=== PATIENT | male | born 1940 | race Caucasian/White ===

== ENCOUNTER → 2016-08-16 | Outpatient (CLI) | payer MEDICARE, OTHER ==
[~2016-08-16] MED LIST: ALLO100T; AMLO5TAB2 PO; ATOR80TA64; CALC667C3 PO; FENO134C PO; LOSA1TAB70 PO; METO-352 PO; METO100T6 PO; NIFE90TA33 PO
--- NOTE | 2016-08-16 12:55 | Diagnostic Imaging Report ---
PA and lateral views of the chest. COMPARISON: 04/28/2016. INDICATION: Cough and congestion. FINDINGS: There is interval removal of right internal jugular tunneled dialysis catheter. There is interstitial thickening in the lungs similar to 04/28/2016 exam. No older exams are available to assess for chronicity and element of vascular congestion and mild interstitial edema is suspected. The heart size is at the upper limits of normal. No effusion or pneumothorax. The mediastinum and jessica appear unremarkable. IMPRESSION: Pulmonary vascular congestion. Dictated by: Dictated on workstation # [id number]
== END ==
LOC: RAD 11:03
PROVIDERS: ATTEND Internal Medicine Nephrology
DX: I50.9 Heart failure, unspecified (principal)
CPT/HCPCS: 71020

== ENCOUNTER → 2017-07-17 | Outpatient (CLI) | payer MEDICARE, OTHER ==
[~2017-07-17] MED LIST changes: +LOSA1TAB23 PO; -LOSA1TAB70 PO
--- NOTE | 2017-07-17 17:33 | Diagnostic Imaging Report ---
Clinical indication: Patient with difficulty talking times couple months. Patient losing voice. No complaints of pain anywhere. No nodule felt anywhere. Exams: 1: MRI of the neck performed without contrast. Sequences include axial T1, axial T2, axial T1 fat-sat, coronal T1, coronal T2 fat-sat. 2: MRI of the chest performed without IV contrast. Sequences include axial 2-D fiesta, axial T2 fat-sat, axial T2, coronal 2-D fiesta, coronal 2-D fiesta fat sat, sagittal 2-D fiesta, coronal lava sequence, axial lava sequence, coronal in and out phase, and axial in and out of phase. Comparison: Bilateral renal ultrasound dated 10/08/2012. Findings: MRI of the neck: There is asymmetry of the supraglottic and glottic laryngeal region which appears rotated slightly counter-clockwise in appearance. The supra-glottic laryngeal soft tissue has a slight lobulated appearance. There is a roughly 10 mm by 8mm area of isointense to muscle T1 signal within the left supraglottic fat noted on series 2, images 16 through 18. Is also a small medial convex border seen extending into the airway area. Besides a slightly distorted and asymmetric appearance, the glottic area shows no significant abnormality. The remainder of the paraglottic and preepiglottic fat appears preserved unremarkable. The nasopharynx, oropharynx, hypopharynx, and subglottic trachea show no significant abnormality. Visualized portions of the oral cavity, tongue, sublingual space, submandibular space is unremarkable. The bilateral salivary glands and thyroid gland is unremarkable. There is no significant lymphadenopathy. Limited visualization of the posterior fossa shows no significant interbody. Visualized bilateral maxillary sinuses are clear. There are cervical spine degenerative disease including right curvature of the cervical spine. Is no neck soft tissue fluid collection seen. MRI of the chest: There is no evidence of mediastinal or upper mediastinal mass seen. There is no mediastinal mass seen along the expected pathway of the recurrent laryngeal nerves. There is no mediastinal lymphadenopathy. Visualized portion the heart is no significant and mildly. There is diffuse low signal involving the spleen on the in phase sequence. Exophytic small bilateral renal cystic structures are partially visualized. Patient is known to have bilateral renal cysts on the comparison ultrasound. The visualized portion of the upper abdominal organs in the region is unremarkable. Is no thoracic aortic aneurysm or gross evidence of dissection seen on the limited exam. Lung azul show no gross and mildly. There is no pleural effusion. The extrathoracic soft tissue and bone structures show no acute process. There is thoracic spine degenerative spurs noted. There is hypertrophic spurring of the glenohumeral joints bilaterally. Visualized portion of the thoracic spinal cord is unremarkable. Impression: 1: There is mild asymmetry of the supraglottic and glottic laryngeal region. There is a roughly 10 mm area of isointense to muscle T1 signal involving the left supraglottic laryngeal fat region. There is a medial convex border of this area which slightly extends to the airway region. Considerations may include a submucosal left supraglottic soft tissue mass versus scar tissue versus other abnormality. Direct visualization may help better evaluate. 2: Otherwise, There is no other significant neck soft tissue abnormality. There is no lymphadenopathy or other neck soft tissue mass. 3: MRI of the chest shows no upper mediastinal mass or lymphadenopathy. 4: Diffuse low signal involving the spleen on the in-phase sequence which may be seen with iron deposition or repeated blood transfusions. Dictated by: Dictated on workstation # [id number]
== END ==
LOC: RAD 15:37
PROVIDERS: ATTEND Otolaryngology Otolaryngology/Facial Plastic Surgery
DX: J38.01 Paralysis of vocal cords and larynx, unilateral (principal)
CPT/HCPCS: 70540; 71550

== ENCOUNTER → 2018-02-14 | Outpatient (CLI) | payer MEDICARE, OTHER ==
[~2018-02-14] MED LIST changes: +RT-ALBUTEROL SULF 2.5 MG/3 ML PRE-MIX VIAL INH ONE; +RT-ALBUTEROL SULF 2.5 MG/3 ML PRE-MIX VIAL ONE; +SEVE800T13 PO
== END ==
LOC: RT 13:06
PROVIDERS: ATTEND Family Medicine
DX: J44.9 Chronic obstructive pulmonary disease, unspecified (principal)
CPT/HCPCS: 94060; 94726; 94729

== ENCOUNTER → 2018-02-27 | Outpatient (CLI) | payer MEDICARE, OTHER ==
[~2018-02-27] MED LIST changes: -RT-ALBUTEROL SULF 2.5 MG/3 ML PRE-MIX VIAL INH ONE; -RT-ALBUTEROL SULF 2.5 MG/3 ML PRE-MIX VIAL ONE
[2018-02-27 15:14] LABS: ABG BASE EXCESS 10.5 MMOL/L (-2.5-2.5); ABG OXYGEN SATURATION 99 % (94-100); ABG PCO2 43 MMHG (35-45); ABG PH 7.51 (7.37-7.43); ABG PO2 96 MMHG (79-93); ABG TCO2 35.6 MMOL/L (21.0-31.0)
[2018-02-27 15:15] LABS: ALLENS TEST YES-POS; INSPIRED O2 3 L; PATIENT TEMP 98.1; VENTILATOR NO
== END ==
LOC: RT 14:46
PROVIDERS: ATTEND Nurse Practitioner Family
DX: J44.9 Chronic obstructive pulmonary disease, unspecified (principal)
CPT/HCPCS: 36600; 82805

== ENCOUNTER → 2018-03-04 | Outpatient (CLI) | payer MEDICARE, OTHER | LOC: CARD 12:46 | PROVIDERS: ATTEND Nurse Practitioner Family | DX: I42.9 Cardiomyopathy, unspecified (principal); J44.9 Chronic obstructive pulmonary disease, unspecified; R06.00 Dyspnea, unspecified; N18.4 Chronic kidney disease, stage 4 (severe) | CPT/HCPCS: 93306 ==

== ENCOUNTER 2018-03-18 13:30 | Outpatient (RCR) | payer MEDICARE, OTHER ==
[~2018-03-18 13:30] MED LIST changes: -AMLO5TAB2 PO; +AMLO5TAB7 PO
== END 2018-04-24 15:41 | disposition home or self-care (01) ==
PROVIDERS: ATTEND Family Medicine
DX: R53.1 Weakness (principal); R29.6 Repeated falls; R26.81 Unsteadiness on feet; J44.9 Chronic obstructive pulmonary disease, unspecified; I48.91 Unspecified atrial fibrillation; I10 Essential (primary) hypertension; Z96.651 Presence of right artificial knee joint

== ENCOUNTER 2019-01-23 17:35 | Emergency (ER) | payer MEDICARE, OTHER ==
[~2019-01-23] VITALS: Ht 170.2 cm; Wt 83.9 kg
[~2019-01-23 17:35] MED LIST changes: -AMLO5TAB7 PO; +AMLO5TAB9 PO
[2019-01-23] MEDS ORDERED: LIDOCAINE/EPI 2% 1:100,00 (XYLOCAINE) 20 ML VIAL ONE (17:40)
--- NOTE | 2019-01-23 17:59 | ED Integumentary General ---
General Chief Complaint: Skin/Wound Problems Stated Complaint: FROM DIALYSIS/CONTINUED BLEEDING Nursing Triage Note: PT LEFT ARM DIALYSIS FISTULA WILL NOT STOP BLEEDING. PT HAD DIALYSIS ENDING AT 1545 TODAY. HEPARIN WAS HELD AT DIALYSIS. PT ON XARELTO AND BABY ASA. PT ALSO HAS BUSTED VESSELS IN RIGHT EYE NOTED. PRESSURE DRESSING NOTED UPON ARRIVAL. Source: patient, family Exam Limitations: no limitations (LINDSEY TAVAREZ APRN) History of Present Illness Date Seen by Provider: Jan 23, 2019 Time Seen by Provider: 17:56 Initial Comments To ER by private vehicle with reports of bleeding to the left upper arm arteriovenous fistula. He has been bleeding since dialysis and arrives with a direct pressure clamp in place. He is on Xarelto, Timing/Duration: just prior to arrival Severity: moderate Associated Symptoms: denies symptoms (LINDSEY TAVAREZ APRN) Allergies and Home Medications Allergies Coded Allergies: No Known Drug Allergies (Unverified , 04/27/16) Home Medications Fenofibrate,Micronized 134 Mg Capsule, 134 MG PO DAILY, (Reported) Metoprolol Succinate 100 Mg Tab.er.24h, 100 MG PO DAILY, (Reported) Sevelamer Carbonate 800 Mg Tablet, 800 MG PO DAILY Prescribed by: BLAKE SHAH on 12/29/17 0368 Patient Home Medication List Home Medication List Reviewed: Yes (LINDSEY TAVAREZ APRN) Review of Systems Review of Systems Constitutional: see HPI EENTM: see HPI Respiratory: no symptoms reported Cardiovascular: no symptoms reported Genitourinary: no symptoms reported Musculoskeletal: no symptoms reported Skin: no symptoms reported Psychiatric/Neurological: No Symptoms Reported (LINDSEY TAVAREZ APRN) Past Rzoeooe-Xoqper-Zadtcx Hx Patient Social History Alcohol Use: Denies Use Recreational Drug Use: No Type Used: Cigarettes 2nd Hand Smoke Exposure: No Recent Foreign Travel: No Contact w/Someone Who Travel: No Recent Infectious Disease Expo: No Recent Hopitalizations: Yes Physical Abuse: No Sexual Abuse: No Mistreated: No Fear: No (LINDSEY TAVAREZ APRN) Immunizations Up To Date Tetanus Booster (TDap): Unknown PED Vaccines UTD: No Date of Pneumonia Vaccine: Apr 12, 2015 Date of Influenza Vaccine: Apr 12, 2015 (LINDSEY TAVAREZ APRN) Seasonal Allergies Seasonal Allergies: No (LINDSEY TAVAREZ APRN) Past Medical History Surgeries: Yes (COLOSTOMY WITH REVERSED) Abdominal, Appendectomy, Orthopedic Respiratory: No Cardiac: Yes High Cholesterol, Hypertension Neurological: No Reproductive Disorders: No Genitourinary: Yes Benign Prostatic Hyperpl, Kidney Stones, Renal Failure, Dialysis Gastrointestinal: Yes Gastroesophageal Reflux, Diverticulosis Musculoskeletal: Yes Gout Endocrine: No Cataract Loss of Vision: Denies Hearing Impairment: Denies Cancer: Yes Skin Psychosocial: No Integumentary: No Blood Disorders: No Adverse Reaction/Blood Tranf: No (LINDSEY TAVAREZ APRN) Family Medical History Alzheimer's disease FHx: breast cancer in first degree relative G8 SISTER No Pertinent Family Hx (LINDSEY TAVAREZ APRN) Physical Exam Vital Signs Vital Signs - First Documented 01/23/19 17:43 Temp 97.6 Pulse 59 Resp 18 B/P (MAP) 159/72 (101) O2 Delivery Room Air (XAVIER FIORE) Vital Signs Capillary Refill : Less Than 3 Seconds (LINDSEY TAVAREZ APRN) General Appearance: WD/WN, no apparent distress HEENT: PERRL/EOMI, normal ENT inspection Respiratory: no respiratory distress, no accessory muscle use Extremities: normal range of motion, non-tender, other (there is no bleeding within the direct pressure clamp was applied, there is pulsatile streaming of blood from the arteriovenous fistula when this is removed.) Neurologic/Psychiatric: alert, normal mood/affect, oriented x 3 (LINDSEY TAVAREZ APRN) Procedures/Interventions Wound Location: Upper Extremities Wound Length (cm): 0.5 Wound's Depth, Shape: linear Anesthesia: Lidocaine w/ Epi Suture: Prolene Suture Size: 4-0 Number of Sutures: 1 Layer Closure?: 1 Progress Locally anesthetized with 2% lidocaine with epinephrine by Dr. Fiore. A kdqnst-jo-hbpcq stitch was then placed using 4-0 Prolene after returning was applied just proximal the arteriovenous fistula. Bleeding was controlled with this and is sutured easily be placed. When the tourniquet was removed after about 1 minute, there was still no bleeding. This was then covered with 4 x 4's and Coban. (LINDSEY TAVAREZ APRN) Wound Location: Upper Extremities Progress Using a proximal and distal tourniquet we controlled the bleeding and applied a simple ffcmkk-bz-kyrkf stitch 1 using 4-0 Prolene. We watched it for about 5 minutes and it did not bleed so we placed some gauze over it and wrapped it gently with Coban. No bleeding noted in the dressing. (XAVIER FIORE) Progress/Results/Core Measures Results/Orders My Orders Orders - XAVIER FIORE Lidocaine/Epi 2% 1:100,000 (Xylocaine/Ep (01/23/19 17:40) (XAVIER FIORE) Vital Signs/I&O 01/23/19 17:43 Temp 97.6 Pulse 59 Resp 18 B/P (MAP) 159/72 (101) O2 Delivery Room Air (XAVIER FIORE) Blood Pressure Mean: 101 Departure Impression Primary Impression: Hemorrhage of arteriovenous fistula Qualified Codes: T82.838A - Hemorrhage due to vascular prosthetic devices, implants and grafts, initial encounter Disposition: 01 HOME, SELF-CARE Condition: Improved Departure-Patient Inst. Decision time for Depature: 17:58 (LINDSEY TAVAREZ APRN) Referrals: ALANA BUTT DO (PCP/Family) Primary Care Physician Patient Instructions: Wound Care (DC) Add. Discharge Instructions: 1. The stitches should be removed in about 7 days. The dialysis nurses can do this by simply cutting it. Leave the dressing in place until sometime tomorrow. Be very gentle with it, return promptly to the emergency room for any recurrent bleeding. All discharge instructions reviewed with patient and/or family. Voiced understanding. LINDSEY TAVAREZ APRN Jan 23, 2019 17:59 XAVIER FIORE Jan 23, 2019 18:04
[2019-01-23] MEDS ORDERED: LIDOCAINE/EPI 2% 1:100,00 (XYLOCAINE) 20 ML VIAL INJ ONE (18:15)
[2019-01-23 18:21] VITALS: BP 170/85
== END 2019-01-23 18:19 | disposition home or self-care (01) ==
LOC: EDUNIT# 17:35 → ER 17:36
DX: T82.838A Hemorrhage due to vascular prosthetic devices, implants and grafts, initial encounter (principal); E78.00 Pure hypercholesterolemia, unspecified; I12.0 Hypertensive chronic kidney disease with stage 5 chronic kidney disease or end stage renal disease; N18.6 End stage renal disease; K21.9 Gastro-esophageal reflux disease without esophagitis; M10.9 Gout, unspecified; Z80.3 Family history of malignant neoplasm of breast; Z87.19 Personal history of other diseases of the digestive system; Z99.2 Dependence on renal dialysis; Z79.01 Long term (current) use of anticoagulants; Z87.442 Personal history of urinary calculi; Z90.49 Acquired absence of other specified parts of digestive tract; Z98.890 Other specified postprocedural states
CPT/HCPCS: 12001

== ENCOUNTER 2019-04-24 17:20 | Emergency (ER) | payer MEDICARE, OTHER ==
[~2019-04-24] VITALS: Ht 170 cm; Wt 84.0 kg
[~2019-04-24 17:20] MED LIST changes: +LIDOCAINE/EPI 2% 1:100,00 (XYLOCAINE) 20 ML VIAL ONE
--- NOTE | 2019-04-24 17:40 | ED General ---
General Chief Complaint: General Problems/Pain Stated Complaint: PROBLEM WITH BLEEDING FROM DIALYSIS ON ARM Source of Information: Patient Exam Limitations: No Limitations History of Present Illness Date Seen by Provider: Apr 24, 2019 Time Seen by Provider: 17:37 Initial Comments To ER with reports of bleeding from the dialysis fistula on the left arm. He just finished dialysis today in the puncture site with bleeding. He's also on xarelto Timing/Duration: 1-2 Days Severity: Moderate Associated Systoms: Denies Symptoms Allergies and Home Medications Allergies Coded Allergies: No Known Drug Allergies (Unverified , 04/27/16) Home Medications Fenofibrate,Micronized 134 Mg Capsule, 134 MG PO DAILY, (Reported) Metoprolol Succinate 100 Mg Tab.er.24h, 100 MG PO DAILY, (Reported) Sevelamer Carbonate 800 Mg Tablet, 800 MG PO DAILY Prescribed by: BLAKE SHAH on 12/29/17 1349 Patient Home Medication List Home Medication List Reviewed: Yes Review of Systems Review of Systems Constitutional: see HPI EENTM: see HPI Respiratory: no symptoms reported Cardiovascular: no symptoms reported Genitourinary: no symptoms reported Musculoskeletal: see HPI Skin: no symptoms reported Psychiatric/Neurological: No Symptoms Reported Hematologic/Lymphatic: No Symptoms Reported Immunological/Allergic: no symptoms reported Past Uqbohyf-Eilfnf-Idykzd Hx Patient Social History Type Used: Cigarettes 2nd Hand Smoke Exposure: No Recent Foreign Travel: No Contact w/Someone Who Travel: No Recent Hopitalizations: Yes Immunizations Up To Date Tetanus Booster (TDap): Unknown PED Vaccines UTD: No Date of Pneumonia Vaccine: Apr 12, 2015 Date of Influenza Vaccine: Apr 12, 2015 Seasonal Allergies Seasonal Allergies: No Past Medical History Surgeries: Yes (COLOSTOMY WITH REVERSED) Abdominal, Appendectomy, Orthopedic Respiratory: No Cardiac: Yes High Cholesterol, Hypertension Neurological: No Reproductive Disorders: No Genitourinary: Yes Benign Prostatic Hyperpl, Kidney Stones, Renal Failure, Dialysis Gastrointestinal: Yes Gastroesophageal Reflux, Diverticulosis Musculoskeletal: Yes Gout Endocrine: No Cataract Loss of Vision: Denies Hearing Impairment: Denies Cancer: Yes Skin Psychosocial: No Integumentary: No Blood Disorders: No Adverse Reaction/Blood Tranf: No Family Medical History Alzheimer's disease FHx: breast cancer in first degree relative G8 SISTER No Pertinent Family Hx Physical Exam Vital Signs Vital Signs - First Documented 04/24/19 17:26 Temp 37.1 Pulse 77 Resp 19 B/P (MAP) 149/82 (104) Pulse Ox 95 O2 Delivery Room Air Capillary Refill : Height, Weight, BMI Height: 5'7.00" Weight: 185lbs. 8.0oz. [id number]; 28.8 BMI Method:Stated General Appearance: No Apparent Distress, WD/WN Eyes: Bilateral Eye Normal Inspection Respiratory: No Accessory Muscle Use, No Respiratory Distress Gastrointestinal: Non Tender, Soft Extremity: Normal Capillary Refill, Normal Inspection, Other (Active bleeding despite a clamp in place to the fistula on the left upper arm. This is just who's with the clamp in place. The clamp was left in place, trauma tourniquet was applied, cinched down tight, the clamp from the dialysis facility was removed, a ntpafk-zj-dvpmq stitch was placed after anesthetizing the tissues with 1 mL of 0.1% lidocaine with epinephrine. Fqquuo-tl-mylwj stitch was placed using size 4-0 Prolene. This did achieve hemostasis. The tourniquet was then loosened.) Neurologic/Psychiatric: Alert, Oriented x3 Skin: Normal Color, Warm/Dry Procedures/Interventions Suture Size: 4-0 Progress/Results/Core Measures Suspected Sepsis SIRS Temperature: Pulse: Respiratory Rate: Blood Pressure / Mean: Results/Orders Vital Signs/I&O 04/24/19 17:26 Temp 37.1 Pulse 77 Resp 19 B/P (MAP) 149/82 (104) Pulse Ox 95 O2 Delivery Room Air Capillary Refill : Departure Communication (Admissions) 1750-currently 10-15 minutes after the sutures have been placed there is no oozing of blood through the few 2 x 2 is placed over the puncture site. Having achieved hemostasis we will discharge to home. Impression Primary Impression: bleeding hemodialysis fistula Disposition: HOME, SELF-CARE Condition: Stable Departure-Patient Inst. Decision time for Depature: 17:39 Referrals: ALANA BUTT DO (PCP/Family) Primary Care Physician Patient Instructions: NO INSTRUCTIONS GIVEN Add. Discharge Instructions: 1. Return to ER for any concerns 2. Follow-up with your doctor next week 3. Stitches in place for abou 7 days, then may then be removed. All discharge instructions reviewed with patient and/or family. Voiced understanding. LINDSEY TAVAREZ TRAVEL REGISTERED NURSE ONCOLOGY Apr 24, 2019 17:39
[2019-04-24 17:53] VITALS: BP 138/77
== END 2019-04-24 17:53 | disposition home or self-care (01) ==
LOC: EDUNIT# 17:20 → ER 17:24
DX: T82.838A Hemorrhage due to vascular prosthetic devices, implants and grafts, initial encounter (principal); I10 Essential (primary) hypertension; E78.00 Pure hypercholesterolemia, unspecified; K21.9 Gastro-esophageal reflux disease without esophagitis; M10.9 Gout, unspecified; Z85.828 Personal history of other malignant neoplasm of skin; Z87.442 Personal history of urinary calculi; Z99.2 Dependence on renal dialysis; Z79.01 Long term (current) use of anticoagulants; Z90.49 Acquired absence of other specified parts of digestive tract; Z87.19 Personal history of other diseases of the digestive system; Z87.448 Personal history of other diseases of urinary system
CPT/HCPCS: 99281

== ENCOUNTER 2019-06-03 16:52 | Emergency (ER) | payer MEDICARE, OTHER ==
[~2019-06-03] VITALS: Ht 170 cm; Wt 84.0 kg
[~2019-06-03 16:52] MED LIST changes: -LIDOCAINE/EPI 2% 1:100,00 (XYLOCAINE) 20 ML VIAL ONE
[2019-06-03] MEDS ORDERED: LIDOCAINE/EPI 2% 1:100,00 (XYLOCAINE) 20 ML VIAL ONE (17:40)
--- NOTE | 2019-06-03 18:26 | ED Upper Extremity ---
General Chief Complaint: General Problems/Pain Stated Complaint: FISTULA BLEEDING Nursing Triage Note: PT TO ROOM 4 PT CO OF L ARM DIALYSIS SHUNT WONT STOP BLEEDING, PT HAS DIALYSIS CLAMP IN PLACE. PT IS ALERT AND WEARS O2 AT 3L PER N/C. PT STATES COULD NOT GET TO STOP BLEEDING AT DIALYSIS Nursing Sepsis Screen: No Definite Risk Source: patient Exam Limitations: no limitations History of Present Illness Date Seen by Provider: Jun 03, 2019 Time Seen by Provider: 18:22 Initial Comments To ER with c/o bleeding from hemodialysis fistula site left upper arm post dialysis just prior to arrival. On xarelto for a-fib. Onset: just prior to arrival Severity: mild Pain/Injury Location: left arm Allergies and Home Medications Allergies Coded Allergies: No Known Drug Allergies (Unverified , 04/27/16) Home Medications Fenofibrate,Micronized 134 Mg Capsule, 134 MG PO DAILY, (Reported) Metoprolol Succinate 100 Mg Tab.er.24h, 100 MG PO DAILY, (Reported) Sevelamer Carbonate 800 Mg Tablet, 800 MG PO DAILY Prescribed by: BLAKE SHAH on 12/29/17 5104 Patient Home Medication List Home Medication List Reviewed: Yes Review of Systems Constitutional: see HPI EENTM: see HPI Respiratory: no symptoms reported Cardiovascular: no symptoms reported Genitourinary: no symptoms reported Musculoskeletal: see HPI Skin: no symptoms reported Psychiatric/Neurological: No Symptoms Reported Past Uftcycj-Psdlxz-Bgmtnr Hx Patient Social History Alcohol Use: Denies Use Recreational Drug Use: No Smoking Status: Never a Smoker Type Used: Cigarettes 2nd Hand Smoke Exposure: No Recent Foreign Travel: No Contact w/Someone Who Travel: No Recent Infectious Disease Expo: No Recent Hopitalizations: No Physical Abuse: No Sexual Abuse: No Immunizations Up To Date Tetanus Booster (TDap): Unknown PED Vaccines UTD: No Date of Pneumonia Vaccine: Apr 12, 2015 Date of Influenza Vaccine: Apr 12, 2015 Seasonal Allergies Seasonal Allergies: No Past Medical History Surgeries: Yes (FISTULA L ARM) Abdominal, Appendectomy, Orthopedic Respiratory: No Cardiac: Yes High Cholesterol, Hypertension Neurological: No Reproductive Disorders: No Genitourinary: Yes Benign Prostatic Hyperpl, Kidney Stones, Renal Failure, Dialysis Gastrointestinal: Yes Gastroesophageal Reflux, Diverticulosis Musculoskeletal: Yes Gout Endocrine: No Cataract Loss of Vision: Denies Hearing Impairment: Denies Cancer: Yes Skin Psychosocial: No Integumentary: No Blood Disorders: No Adverse Reaction/Blood Tranf: No Family Medical History Alzheimer's disease FHx: breast cancer in first degree relative G8 SISTER No Pertinent Family Hx Physical Exam Vital Signs Vital Signs - First Documented 06/03/19 16:55 Temp 36.3 Pulse 79 Resp 18 B/P (MAP) 154/74 (100) Pulse Ox 92 O2 Delivery Nasal Cannula O2 Flow Rate 3.00 Capillary Refill : Less Than 3 Seconds Height, Weight, BMI Height: 5'7.00" Weight: 185lbs. 8.0oz. 83.615574tv; 29.00 BMI Method:Stated General Appearance: WD/WN, no apparent distress HEENT: PERRL/EOMI, normal ENT inspection Respiratory: no respiratory distress, no accessory muscle use Shoulder: normal inspection, non-tender Elbow/Forearm: normal inspection, Left Neurologic/Psychiatric: alert, normal mood/affect, oriented x 3 small but steady stream of bleeding from puncture site anterior left upper arm after dialysis clamp removed. Trauma tourniquet applied proximal to this, overlying skin anesthetized with lidociane with epinephrine [id number] totaling 0.5ml. Figure of 8 suture placed using 4-0 prolene. Some small bleeding/oozing from the suture needle puncture site but the stream of blood resolved. This ooze was then dried and dermabond applied. Hemostasis achieved, observed x30 minutes without recurrent bleeding. Pt only lives 1 mile from hospital, will return to ER for any concerns. Procedures/Interventions Suture Size: 4-0 Progress/Results/Core Measures Results/Orders Medications Given in ED Current Medications Medications Dose Ordered Sig/Polina Route Start Time Stop Time Status Last Admin Dose Admin Lidocaine/ Epinephrine 20 ml STK-MED ONCE .ROUTE 06/03/19 17:40 06/03/19 17:42 DC 06/03/19 17:50 2 ML Vital Signs/I&O 06/03/19 16:55 Temp 36.3 Pulse 79 Resp 18 B/P (MAP) 154/74 (100) Pulse Ox 92 O2 Delivery Nasal Cannula O2 Flow Rate 3.00 Blood Pressure Mean: 100 Departure Impression Primary Impression: Hemodialysis fistula bleed Disposition: 01 HOME, SELF-CARE Condition: Stable Departure-Patient Inst. Decision time for Depature: 18:26 Referrals: ALANA BUTT DO (PCP/Family) Primary Care Physician Patient Instructions: NO INSTRUCTIONS GIVEN Add. Discharge Instructions: 1. Return to ER for any concerns or rebleeding. All discharge instructions reviewed with patient and/or family. Voiced understanding. LINDSEY TAVAREZ UNIX ANALYST Jun 03, 2019 18:26
--- NOTE | 2019-06-03 18:30 | NUR ---
NO BLEEDING NOTED ON L UPPER ARM FISTULA AREA
[2019-06-03 18:31] VITALS: BP 154/74
== END 2019-06-03 18:31 | disposition home or self-care (01) ==
LOC: EDUNIT# 16:52 → ER 16:53
DX: T82.838A Hemorrhage due to vascular prosthetic devices, implants and grafts, initial encounter (principal); I48.91 Unspecified atrial fibrillation; I10 Essential (primary) hypertension; E78.00 Pure hypercholesterolemia, unspecified; K21.9 Gastro-esophageal reflux disease without esophagitis; M10.9 Gout, unspecified; Z85.828 Personal history of other malignant neoplasm of skin; Z87.442 Personal history of urinary calculi; Z79.01 Long term (current) use of anticoagulants; Z90.49 Acquired absence of other specified parts of digestive tract; Z99.2 Dependence on renal dialysis; Z80.3 Family history of malignant neoplasm of breast
CPT/HCPCS: 99281

== ENCOUNTER 2019-10-22 18:04 | Emergency (ER) | payer MEDICARE, OTHER ==
[~2019-10-22] VITALS: Ht 170 cm; Wt 83.9 kg
[~2019-10-22 18:04] MED LIST changes: -NIFE90TA33 PO; +NIFE90TA57 PO
--- NOTE | 2019-10-22 18:24 | ED Fall/Injury ---
General Chief Complaint: Hip/Pelvic Problems Stated Complaint: WEAKNESS, HIP PAIN Nursing Triage Note: ARRIVED VIA [facility] FROM HOME AFTER FALLING MULTIPLE TIMES. STATES HE IS HAVING INCREASED WEAKNESS. UNKNOWN IF HE HAS HIT HIS HEAD. Source: patient (SOMEWHAT LIMITED HISTORIAN), family (DAUGHTER), EMS History of Present Illness Date Seen by Provider: Oct 22, 2019 Time Seen by Provider: 17:57 Initial Comments PT ARRIVES VIA EMS FROM HOME AT [facility] PT HAD A WITNESSED FALL FROM STANDING, ONTO CARPET, LANDING ON HIS LEFT SIDE--OCCURRED JUST PRIOR TO ARRIVAL DAUGHTER WITNESSED THE FALL PT HAS ONGOING GENERALIZED WEAKNESS, AND WAS USING HIS WALKER, AND WAS "JUST WEAK" AND HE FELL--MORE WEAK TODAY NO LOSS OF CONSCIOUSNESS DOES NOT THINK HE HIT HIS HEAD NO NECK OR BACK PAIN ONLY C/O LEFT HIP PAIN NO PARESTHESIAS OR MOTOR DEFICITS PT FELL LAST WEEK, UNDER SAME CIRCUMSTANCES, AND HIT LEFT UPPER ARM--DID NOT SEEK CARE STATES ARM DOES NOT HURT PT HAS A BRUISE TO THIS AREA, AND ALSO A SMALL BRUISE TO RIGHT BREAST AREA--STATES IT DOES NOT HURT NO SHORTNESS OF BREATH NO CHEST PAIN NO PALPITATIONS NO FEVER OR RECENT ILLNESS NO VISION CHANGES NO HEADACHE NO NAUSEA/VOMITING NO COUGH/CONGESTION 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 PT STATES HE IS NOT DIABETIC, BUT IS NOT SURE WHY HE HAS KIDNEY FAILURE--? POSSIBLY DUE TO HTN ?? 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 PT HAS HAD PRIOR RIGHT KNEE REPLACEMENT AND STATES HIS LEFT LEG IS NOW SHORTER THAN RIGHT ( "WAS BOW-LEGGED", AND AFTER KNEE REPLACEMENT, HIS RIGHT LEG IS NOW STRAIGHT, THEREFORE IS LONGER THAN THE LEFT) PCP: DR. BUTT CHAIN PEGGER: DR Diaz" --DIALYSIS AT [facility] Allergies and Home Medications Allergies Coded Allergies: No Known Drug Allergies (Unverified , 04/27/16) Home Medications Fenofibrate,Micronized 134 Mg Capsule, 134 MG PO DAILY, (Reported) Metoprolol Succinate 100 Mg Tab.er.24h, 100 MG PO DAILY, (Reported) Sevelamer Carbonate 800 Mg Tablet, 800 MG PO DAILY Prescribed by: BLAKE SHAH on 12/29/17 3313 Patient Home Medication List Home Medication List Reviewed: Yes Review of Systems Review of Systems Constitutional: see HPI; No chills, No diaphoresis, No dizziness, No fever; malaise, weakness Eyes: No Symptoms Reported Ears, Nose, Mouth, Throat: no symptoms reported Respiratory: no symptoms reported Cardiovascular: no symptoms reported Gastrointestinal: no symptoms reported Genitourinary: see HPI Musculoskeletal: see HPI Skin: see HPI Psychiatric/Neurological: No Symptoms Reported; Denies Headache, Denies Numbness, Denies Paresthesia, Denies Seizure, Denies Tingling Past Yegmfkh-Eldrgv-Kpqtkr Hx Past Med/Social Hx: Reviewed and Corrections made Patient Social History Alcohol Use: Denies Use Recreational Drug Use: No Smoking Status: Former Smoker (SMOKED 1 PPD, QUIT IN ) Type Used: Cigarettes 2nd Hand Smoke Exposure: No Recent Foreign Travel: No Contact w/Someone Who Travel: No Recent Infectious Disease Expo: No Recent Hopitalizations: No Immunizations Up To Date Tetanus Booster (TDap): Unknown PED Vaccines UTD: No Date of Pneumonia Vaccine: Apr 12, 2015 Date of Influenza Vaccine: Apr 12, 2015 Seasonal Allergies Seasonal Allergies: No Past Medical History Surgeries: Yes (SEE BELOW) Abdominal, Appendectomy, Cardiac, Dialysis, Orthopedic, Valve Replacement, Vascular Surgery Respiratory: No Cardiac: Yes (PACEMAKER; VALVE REPLACEMENT) Chronic Edema/Swelling, High Cholesterol, Hypertension, Irregular Heartbeat, Valvular Heart Disease Neurological: No Reproductive Disorders: No Genitourinary: Yes Benign Prostatic Hyperpl, Kidney Stones, Renal Failure, Dialysis Gastrointestinal: Yes (S/P COLON RESECTION/COLOSTOMY/LATER TAKEDOWN) Gastroesophageal Reflux, Diverticulosis Musculoskeletal: Yes (RIGHT KNEE REPLACEMENT) Arthritis, Gout Endocrine: No HEENT: Yes Cataract Loss of Vision: Denies Hearing Impairment: Denies Cancer: Yes Skin Did You Recieve Any Treatments: Yes What Type of Treatment Did You: Surgical Intervention Psychosocial: No Integumentary: No Blood Disorders: No Adverse Reaction/Blood Tranf: No Family Medical History Alzheimer's disease FHx: breast cancer in first degree relative G8 SISTER No Pertinent Family Hx PSH: -EGD'S/COLONOSCOPIES -CATARACT SURGERY -REMOVAL OF SKIN CANCER -APPENDECTOMY -LEFT ARM DIALYSIS SHUNT/GRAFT/AV FISTULA -RIGHT KNEE REPLACEMENT -COLON RESECTION WITH DIVERTING COLOSTOMY FOR DIVERTICULITIS, WITH LATER TAKEDOWN/REVERSAL -VALVE REPLACEMENT -PACEMAKER Physical Exam Vital Signs Vital Signs - First Documented 10/22/19 18:04 Temp 36.6 Pulse 75 Resp 16 B/P (MAP) 161/86 (111) Pulse Ox 98 O2 Delivery Room Air O2 Flow Rate 4.00 Capillary Refill : Less Than 3 Seconds Height, Weight, BMI Height: 5'7.00" Weight: 185lbs. 8.0oz. 83.432379xy; 29.00 BMI Method:Stated General Appearance: WD/WN, no apparent distress HEENT: PERRL/EOMI, normal ENT inspection Neck: non-tender, full range of motion, supple, normal inspection Cardiovascular: systolic murmur (/), irregularly irregular Respiratory: chest non-tender, normal breath sounds, no respiratory distress, no accessory muscle use Gastrointestinal: normal bowel sounds, non tender, soft Back: normal inspection, no CVA tenderness, no vertebral tenderness Extremities: pedal edema (1+ BILATERALLY), other (TENDERNESS TO LEFT HIP AND PROXIMAL TIB/FIB AREA; LEFT LEG SHORTER THAN RIGHT, BUT NOT ROTATED. FEET WARM AND PINK WITH GOOD CAPILLARY REFILL, BUT UNABLE TO PALPATE PULSES. CHRONIC VENOUS STASIS CHANGES BILATERALLY. NO EXTERNAL EVIDENCE OF TRAUMA TO LEGS. ) Neurologic/Psychiatric: paramedic II-XII nml as tested, no motor/sensory deficits, alert, normal mood/affect, oriented x 3 Skin: normal color, warm/dry, ecchymosis Procedures/Interventions Suture Size: 4-0 Progress/Results/Core Measures Results/Orders Lab Results Laboratory Tests Test 10/22/19 18:45 Range/Units White Blood Count 6.0 4.3-11.0 10^3/uL Red Blood Count 3.58 L 4.35-5.85 10^6/uL Hemoglobin 10.2 L 13.3-17.7 G/DL Hematocrit 35 L 40-54 % Mean Corpuscular Volume 98 80-99 FL Mean Corpuscular Hemoglobin 28 25-34 PG Mean Corpuscular Hemoglobin Concent 29 L 32-36 G/DL Red Cell Distribution Width 18.5 H 10.0-14.5 % Platelet Count 135 130-400 10^3/uL Mean Platelet Volume 11.8 H 7.4-10.4 FL Neutrophils (%) (Auto) 69 42-75 % Lymphocytes (%) (Auto) 14 12-44 % Monocytes (%) (Auto) 12 0-12 % Eosinophils (%) (Auto) 4 0-10 % Basophils (%) (Auto) 1 0-10 % Neutrophils # (Auto) 4.1 1.8-7.8 X 10^3 Lymphocytes # (Auto) 0.8 L 1.0-4.0 X 10^3 Monocytes # (Auto) 0.7 0.0-1.0 X 10^3 Eosinophils # (Auto) 0.2 0.0-0.3 10^3/uL Basophils # (Auto) 0.0 0.0-0.1 10^3/uL Prothrombin Time 15.5 H 12.2-14.7 SEC INR Comment 1.2 0.8-1.4 Activated Partial Thromboplast Time 31 24-35 SEC Sodium Level 141 135-145 MMOL/L Potassium Level 4.7 3.6-5.0 MMOL/L Chloride Level 99 98-107 MMOL/L Carbon Dioxide Level 28 21-32 MMOL/L Anion Gap 14 5-14 MMOL/L Blood Urea Nitrogen 35 H 7-18 MG/DL Creatinine 4.67 H 0.60-1.30 MG/DL Estimat Glomerular Filtration Rate 12 BUN/Creatinine Ratio 7 Glucose Level 94 70-105 MG/DL Calcium Level 9.1 8.5-10.1 MG/DL Corrected Calcium 9.3 8.5-10.1 MG/DL Magnesium Level 2.3 1.6-2.4 MG/DL Total Bilirubin 1.3 H 0.1-1.0 MG/DL Aspartate Amino Transf (AST/SGOT) 35 H 5-34 U/L Alanine Aminotransferase (ALT/SGPT) 16 0-55 U/L Alkaline Phosphatase 77 40-136 U/L Troponin I 0.050 H <0.028 NG/ML Total Protein 7.3 6.4-8.2 GM/DL Albumin 3.8 3.2-4.5 GM/DL My Orders Orders - MARITA RUFF DO Ed Iv/Invasive Line Start (10/22/19 18:07) O2 (10/22/19 18:07) Monitor-Rhythm Ecg Trace Only (10/22/19 18:07) Ct Head Wo (10/22/19 18:07) Chest 1 View, Ap/Pa Only (10/22/19 18:07) Femur, Left, 2 Views (10/22/19 18:07) Tibia/Fibula, Left, 2 Views (10/22/19 18:07) Pelvis With Left Hip 2-3 Views (10/22/19 18:07) Cbc With Automated Diff (10/22/19 18:07) Comprehensive Metabolic Panel (10/22/19 18:07) Protime With Inr (10/22/19 18:07) Partial Thromboplastin Time (10/22/19 18:07) Ekg Tracing (10/22/19 18:15) Magnesium (10/22/19 18:15) Troponin I (10/22/19 18:15) Fentanyl Injection (Sublimaze Injection (10/22/19 19:58) Fentanyl Injection (Sublimaze Injection (10/22/19 20:15) Fentanyl Injection (Sublimaze Injection (10/22/19 21:00) Vital Signs/I&O 10/22/19 10/22/19 10/22/19 18:04 18:04 21:05 Temp 36.6 36.6 Pulse 75 63 Resp 16 16 B/P (MAP) 161/86 (111) 161/73 (111) Pulse Ox 98 98 O2 Delivery Room Air Nasal Cannula Nasal Cannula O2 Flow Rate 4.00 4.00 Blood Pressure Mean: 111 Progress Progress Note : Progress Note PT HAD NO COMPLAINTS OF PAIN, AND DECLINED PAIN MEDICATION, UNTIL JUST PRIOR TO TRANSFER UNEVENTFUL ER STAY Initial ECG Impression Date: Oct 22, 2019 Initial ECG Impression Time: 18:26 Initial ECG Rate: 63 Comment ATRIAL PACED, RBBB Diagnostic Imaging Comments PELVIS/ LEFT HIP XRAYS--INTERTROCHANTERIC FRACTURE OF HIP, EXTENDING INTO FEMORAL SHAFT LEFT FEMUR XRAYS--SAME ABOVE LEFT TIB-FIB XRAYS--NO ACUTE PROCESS CXR--CARDIOMEGALY AND MILD VASCULAR CONGESTION, POST OP CHANGES CT HEAD--NO ACUTE PROCESS, CHRONIC SENESCENT CHANGES ALL PER RADIOLOGIST REPORTS TAT 1919 Reviewed: Reviewed by Me Departure Communication (Admissions) 1922--CALLED [facility] ( PT PREFERENCE) . ON COMPLETE DIVERSION. 1923--CALLED [facility], SPOKE WITH DR. ALANIZ, ER PHYSICIAN, ACCEPTS PT FOR TRANSFER Impression Primary Impression: S/P FALL FROM STANDING Additional Impressions: Closed left hip fracture ESRD (end stage renal disease) on dialysis Generalized weakness Disposition: 02 XFER SHT-TRM HOSP Condition: Stable Transfer Transfer Reason: Exceeds level of care Transfer Facility: [facility] Method of Transfer: EMS Departure-Patient Inst. Referrals: ALANA BUTT DO (PCP/Family) Primary Care Physician MARITA RUFF DO Oct 22, 2019 18:24
[2019-10-22 18:48] LABS: BASOPHILS % (AUTO) 1 % (0-10); EOSINOPHILS # (AUTO) 0.2 10^3/uL (0.0-0.3); EOSINOPHILS % (AUTO) 4 % (0-10); HEMATOCRIT 35 % (40-54); HEMOGLOBIN 10.2 G/DL (13.3-17.7); LYMPHOCYTES # (AUTO) 0.8 X 10^3 (1.0-4.0); LYMPHOCYTES % (AUTO) 14 % (12-44); MEAN CORPUSCULAR HEMOGLOBIN 28 PG (25-34); MEAN CORPUSCULAR HGB CONC 29 G/DL (32-36); MEAN CORPUSCULAR VOLUME 98 FL (80-99); MEAN PLATELET VOLUME 11.8 FL (7.4-10.4); MONOCYTES # (AUTO) 0.7 X 10^3 (0.0-1.0); MONOCYTES % (AUTO) 12 % (0-12); NEUTROPHILS # (AUTO) 4.1 X 10^3 (1.8-7.8); NEUTROPHILS % (AUTO) 69 % (42-75); PLATELET COUNT 135 10^3/uL (130-400); RED CELL DISTRIBUTION WIDTH 18.5 % (10.0-14.5)
--- NOTE | 2019-10-22 18:52 | Diagnostic Imaging Report ---
PROCEDURE: CT head without contrast. TECHNIQUE: Multiple contiguous axial images were obtained through the brain without the use of intravenous contrast. Auto Exposure Controls were utilized during the CT exam to meet ALARA standards for radiation dose reduction. INDICATION: Syncope, fall. COMPARISON: 12/28/2017. FINDINGS: No hyperdense hemorrhage or space-occupying mass. No hydrocephalus or midline shift. Global atrophy is present. Extensive periventricular white matter hypoattenuation is unchanged and most compatible with chronic microvascular ischemic disease. No skull fracture. Paranasal sinuses and mastoid air cells are clear. Bilateral cataract surgery has been performed. Orbits are otherwise normal. IMPRESSION: 1. No acute intracranial process by CT. 2. Global atrophy and chronic microvascular ischemic disease is unchanged. Dictated by: Dictated on workstation # [id number]
--- NOTE | 2019-10-22 18:57 | NUR ---
Received report from [facility] [place] at this time.
[2019-10-22 19:08] LABS: INR 1.2 (0.8-1.4); PROTHROMBIN TIME PATIENT 15.5 SEC (12.2-14.7)
[2019-10-22 19:16] LABS: ALBUMIN 3.8 GM/DL (3.2-4.5); BILIRUBIN,TOTAL 1.3 MG/DL (0.1-1.0); CALCIUM 9.1 MG/DL (8.5-10.1); CREATININE SERUM 4.67 MG/DL (0.60-1.30); MAGNESIUM 2.3 MG/DL (1.6-2.4); POTASSIUM 4.7 MMOL/L (3.6-5.0); TOTAL PROTEIN 7.3 GM/DL (6.4-8.2)
--- NOTE | 2019-10-22 19:17 | Diagnostic Imaging Report ---
INDICATION: Syncopal episode causing fall onto the left hip and leg today. FINDINGS: A frontal view of the chest is compared to an exam from 12/29/2017. Heart size has increased with interval placement of a percutaneous aortic valve. Cardiac pacemaker has also been placed. There is mild congestion. No pleural effusion or pneumothorax is present. No fractures are identified. IMPRESSION: Normal development of cardiomegaly and mild congestion and postoperative changes. No fracture, pneumothorax or pleural effusion is identified. Dictated by: Dictated on workstation # [id number]
--- NOTE | 2019-10-22 19:17 | Diagnostic Imaging Report ---
INDICATION: Syncopal episode causing fall onto the left hip and leg today. FINDINGS: Two views of the left tibia and fibula demonstrate degenerative changes of the knee and ankle. No fractures are identified. IMPRESSION: There are no acute findings. Dictated by: Dictated on workstation # [id number]
--- NOTE | 2019-10-22 19:17 | Diagnostic Imaging Report ---
INDICATION: Syncopal episode causing fall onto left hip and leg today. FINDINGS: Two views of the left femur demonstrate an intertrochanteric fracture of the left hip extending into the proximal femoral shaft. IMPRESSION: There is an intertrochanteric fracture of the left hip extending into the proximal femoral shaft. Dictated by: Dictated on workstation # [id number]
--- NOTE | 2019-10-22 19:19 | Diagnostic Imaging Report ---
INDICATION: Syncopal episode causing fall on to the left hip. FINDINGS: AP view of the pelvis and a lateral view of the left hip demonstrate an intertrochanteric fracture of the left hip extending into the proximal femoral shaft. IMPRESSION: There is an intertrochanteric fracture of the left hip extending into the proximal femoral shaft. Dictated by: Dictated on workstation # [id number]
[2019-10-22] MEDS ORDERED: fentaNYL INJECTION 100 MCG/2 ML AMP ONE (19:58)
[2019-10-22] MEDS ORDERED: fentaNYL INJECTION 100 MCG/2 ML AMP IVP ONE ×2 (20:15→21:00)
[2019-10-22 21:05] VITALS: BP 161/73
== END 2019-10-22 21:12 | disposition short-term general hospital (02) ==
LOC: EDUNIT# 18:04 → ER 18:06
DX: S72.92XA Unspecified fracture of left femur, initial encounter for closed fracture (principal); I12.0 Hypertensive chronic kidney disease with stage 5 chronic kidney disease or end stage renal disease; N18.6 End stage renal disease; E78.00 Pure hypercholesterolemia, unspecified; Z96.651 Presence of right artificial knee joint; Z87.891 Personal history of nicotine dependence; Z99.2 Dependence on renal dialysis; Z95.0 Presence of cardiac pacemaker; Z85.828 Personal history of other malignant neoplasm of skin; Z85.3 Personal history of malignant neoplasm of breast; Z80.3 Family history of malignant neoplasm of breast; W18.39XA Other fall on same level, initial encounter; Y92.009 Unspecified place in unspecified non-institutional (private) residence as the place of occurrence of the external cause
CPT/HCPCS: 36415; 70450; 71045; 73552; 73590; 80053; 83735; 84484; 85025; 85610; 85730; 93005; 93041

== ENCOUNTER 2019-10-30 23:15 | Emergency (ER) | payer MEDICARE, OTHER ==
--- NOTE | 2019-10-30 23:25 | NUR ---
DR. LEE APPLIED CAT TOURNIQUET AND THEN REMOVED PRESSURE DRESSING APPLIED DRY ICE MAKER BY [facility]. AFTER APPROX 30 SECONDS WITH NO BLEEDING, DR. LEE REMOVED TOURNIQUET AND THERE WAS STILL NO BLEEDING. SHUNT LEFT GUARD CHIEF WITH TOURNIQUET OFF.
--- NOTE | 2019-10-30 23:31 | ED Upper Extremity ---
General Stated Complaint: DIALYSIS SHUNT LEAKING Source: patient, EMS Exam Limitations: no limitations History of Present Illness Date Seen by Provider: Oct 30, 2019 Time Seen by Provider: 23:13 Initial Comments Patient arrives by EMS from medical [facility] with chief complaint of having had dialysis today and had a bleed started up from where his dialysis shunt was accessed earlier. He received heparin with his dialysis. He does not think he is on blood thinners otherwise. He is not having any significant pain does have a history of a hip fracture for which she is receiving rehabilitation. Allergies and Home Medications Allergies Coded Allergies: No Known Drug Allergies (Unverified , 04/27/16) Home Medications Fenofibrate,Micronized 134 Mg Capsule, 134 MG PO DAILY, (Reported) Metoprolol Succinate 100 Mg Tab.er.24h, 100 MG PO DAILY, (Reported) Sevelamer Carbonate 800 Mg Tablet, 800 MG PO DAILY Prescribed by: BLAKE SHAH on 12/29/17 8355 Patient Home Medication List Home Medication List Reviewed: Yes Review of Systems Constitutional: No chills, No diaphoresis EENTM: No ear discharge, No ear pain Respiratory: No cough, No short of breath Cardiovascular: No chest pain, No edema Gastrointestinal: No abdominal pain, No nausea Genitourinary: No discharge, No dysuria Musculoskeletal: No back pain, No joint pain Skin: No pruritus, No rash Past Pfsgcfc-Mqgbok-Lopyze Hx Patient Social History Alcohol Use: Denies Use Recreational Drug Use: No Smoking Status: Current Everyday Smoker Type Used: Cigarettes 2nd Hand Smoke Exposure: No Recent Hopitalizations: No Immunizations Up To Date Tetanus Booster (TDap): Unknown PED Vaccines UTD: No Date of Pneumonia Vaccine: Apr 12, 2015 Date of Influenza Vaccine: Apr 12, 2015 Seasonal Allergies Seasonal Allergies: No Past Medical History Surgeries: Yes (SEE BELOW) Abdominal, Appendectomy, Cardiac, Dialysis, Orthopedic, Valve Replacement, Vascular Surgery Respiratory: No Cardiac: Yes (PACEMAKER; VALVE REPLACEMENT) Chronic Edema/Swelling, High Cholesterol, Hypertension, Irregular Heartbeat, Valvular Heart Disease Neurological: No Reproductive Disorders: No Genitourinary: Yes Benign Prostatic Hyperpl, Kidney Stones, Renal Failure, Dialysis Gastrointestinal: Yes (S/P COLON RESECTION/COLOSTOMY/LATER TAKEDOWN) Gastroesophageal Reflux, Diverticulosis Musculoskeletal: Yes (RIGHT KNEE REPLACEMENT) Arthritis, Gout Endocrine: No HEENT: Yes Cataract Loss of Vision: Denies Hearing Impairment: Denies Cancer: Yes Skin Did You Recieve Any Treatments: Yes What Type of Treatment Did You: Surgical Intervention Psychosocial: No Integumentary: No Blood Disorders: No Adverse Reaction/Blood Tranf: No Family Medical History Alzheimer's disease FHx: breast cancer in first degree relative G8 SISTER No Pertinent Family Hx PSH: -EGD'S/COLONOSCOPIES -CATARACT SURGERY -REMOVAL OF SKIN CANCER -APPENDECTOMY -LEFT ARM DIALYSIS SHUNT/GRAFT/AV FISTULA -RIGHT KNEE REPLACEMENT -COLON RESECTION WITH DIVERTING COLOSTOMY FOR DIVERTICULITIS, WITH LATER TAKEDOWN/REVERSAL -VALVE REPLACEMENT -PACEMAKER Physical Exam Vital Signs Capillary Refill : Height, Weight, BMI Height: 5'7.00" Weight: 185lbs. 8.0oz. 83.354925xn; 29.00 BMI Method:Stated General Appearance: WD/WN, no apparent distress HEENT: PERRL/EOMI, pharynx normal Neck: full range of motion, normal inspection Cardiovascular: normal peripheral pulses, regular rate, rhythm (heart rate in the 70s) Respiratory: no respiratory distress, no accessory muscle use Neurologic/Tendon: normal sensation, normal motor functions, normal tendon functions Neurologic/Psychiatric: alert, normal mood/affect, oriented x 3 Skin: other (there is a small puncture site that is hemostatic over the dialysis shunt left upper extremity) Procedures/Interventions Suture Size: 4-0 Progress/Results/Core Measures Results/Orders Lab Results Laboratory Tests Test 10/30/19 23:45 Range/Units White Blood Count 6.3 4.3-11.0 10^3/uL Red Blood Count 3.08 L 4.35-5.85 10^6/uL Hemoglobin 8.8 L 13.3-17.7 G/DL Hematocrit 29 L 40-54 % Mean Corpuscular Volume 95 80-99 FL Mean Corpuscular Hemoglobin 29 25-34 PG Mean Corpuscular Hemoglobin Concent 30 L 32-36 G/DL Red Cell Distribution Width 16.7 H 10.0-14.5 % Platelet Count 200 130-400 10^3/uL Mean Platelet Volume 11.1 H 7.4-10.4 FL My Orders Orders - XAVIER LEE Cbc No Diff (10/30/19 23:31) Progress Progress Note #1: Time: 23:29 Progress Note We applied a tourniquet for about 30 seconds total took the dressing off and there was no bleeding. We released the tourniquet and is still did not bleed. There is a good bruit felt as well as auscultated over the shunt. Were going to just check a hemogram and watch him for a short amount of time and if he does not rebleed then we will let him go back to medical [facility]. Progress Note #2: Time: 00:14 Progress Note Patient's been resting comfortably and has had no bleeding. He's been moving his arm around and apparently watching TV in bed. He has no concerns. The is still hemostatic and his hemoglobin dropped from 10.2 down to 8.8. Still acceptable he is asymptomatic so were going to allow him to return to the assisted. Departure Impression Primary Impression: Bleeding from dialysis shunt Qualified Codes: T82.838A - Hemorrhage due to vascular prosthetic devices, implants and grafts, initial encounter Disposition: 01 HOME, SELF-CARE Condition: Stable Departure-Patient Inst. Decision time for Depature: 00:10 Referrals: ALANA BUTT DO (PCP/Family) Primary Care Physician Patient Instructions: Wound Care (DC) Add. Discharge Instructions: Keep the wound clean with regular soap and water. If the wound begins to bleed again then apply direct pressure and elevate your arm above the level of your heart and contact your nurse immediately. Return to the ER for unable to get it to stop after 20 minutes. XAVIER LEE Oct 30, 2019 23:31
[2019-10-31 00:05] LABS: HEMOGLOBIN 8.8 G/DL (13.3-17.7); MEAN PLATELET VOLUME 11.1 FL (7.4-10.4); RED CELL DISTRIBUTION WIDTH 16.7 % (10.0-14.5); WHITE BLOOD COUNT 6.3 10^3/uL (4.3-11.0)
--- NOTE | 2019-10-31 00:15 | NUR ---
[facility]PD[facility] ON [facility] STATUS AND PENDING D/C. [facility] TO SEND STAFF TO TRANSFER PT TO FACILITY.
[2019-10-31 01:28] VITALS: BP 150/63
== END 2019-10-31 01:29 | disposition home or self-care (01) ==
LOC: EDUNIT# 23:15 → ER 23:17
DX: T82.838A Hemorrhage due to vascular prosthetic devices, implants and grafts, initial encounter (principal); I12.9 Hypertensive chronic kidney disease with stage 1 through stage 4 chronic kidney disease, or unspecified chronic kidney disease; N18.9 Chronic kidney disease, unspecified; E78.00 Pure hypercholesterolemia, unspecified; F17.210 Nicotine dependence, cigarettes, uncomplicated; Z85.828 Personal history of other malignant neoplasm of skin; Z96.651 Presence of right artificial knee joint; Z80.3 Family history of malignant neoplasm of breast; Z99.2 Dependence on renal dialysis
CPT/HCPCS: 36415; 85027; 99283

== ENCOUNTER 2020-08-10 16:48 | Emergency (ER) | payer MEDICARE, OTHER ==
[~2020-08-10] VITALS: Ht 170.2 cm; Wt 83.9 kg
[2020-08-10 16:48] VITALS: BP 115/57
[~2020-08-10 16:48] MED LIST changes: +AMLO-250 PO; -AMLO5TAB9 PO
--- NOTE | 2020-08-10 17:13 | ED Integumentary General ---
General Chief Complaint: General Problems/Pain Stated Complaint: DIALYSIS PORT BLEEDING Nursing Triage Note: PT TO RM 4 BY WHEELCHAIR WITH COMPLAINT OF DIALYSIS SHUNT BLEEDING. Source: patient Exam Limitations: no limitations History of Present Illness Date Seen by Provider: Aug 10, 2020 Time Seen by Provider: 16:45 Initial Comments Patient presents ER by private conveyance from dialysis center with chief complaint of intractable bleed from insertion site. This happened before. He has not been on blood thinners. He does not have any significant pain chest pain or shortness of air. Allergies and Home Medications Allergies Coded Allergies: No Known Drug Allergies (Unverified , 04/27/16) Home Medications Fenofibrate,Micronized 134 Mg Capsule, 134 MG PO DAILY, (Reported) Metoprolol Succinate 100 Mg Tab.er.24h, 100 MG PO DAILY, (Reported) Sevelamer Carbonate 800 Mg Tablet, 800 MG PO DAILY Prescribed by: BLAKE TRINH on 12/29/17 1870 Patient Home Medication List Home Medication List Reviewed: Yes Review of Systems Review of Systems Constitutional: No chills, No fever EENTM: No ear discharge, No ear pain Respiratory: No cough, No short of breath Cardiovascular: No chest pain, No palpitations Gastrointestinal: No abdominal pain, No nausea, No vomiting All Other Systems Reviewed Negative Unless Noted: Yes Past Gkmiiia-Sbkpth-Zttoos Hx Patient Social History Alcohol Use: Denies Use Recreational Drug Use: No Smoking Status: Former Smoker Type Used: Cigarettes 2nd Hand Smoke Exposure: No Recent Foreign Travel: No Contact w/Someone Who Travel: No Recent Infectious Disease Expo: No Recent Hopitalizations: No Immunizations Up To Date Tetanus Booster (TDap): Unknown PED Vaccines UTD: No Date of Pneumonia Vaccine: Apr 12, 2015 Date of Influenza Vaccine: Apr 12, 2015 Seasonal Allergies Seasonal Allergies: No Past Medical History Surgeries: Yes Abdominal, Appendectomy, Cardiac, Dialysis, Orthopedic, Valve Replacement, Vascular Surgery Respiratory: No Cardiac: Yes (PACEMAKER; VALVE REPLACEMENT) Chronic Edema/Swelling, High Cholesterol, Hypertension, Irregular Heartbeat, Valvular Heart Disease Neurological: No Reproductive Disorders: No Genitourinary: Yes Benign Prostatic Hyperpl, Kidney Stones, Renal Failure, Dialysis Gastrointestinal: Yes (S/P COLON RESECTION/COLOSTOMY/LATER TAKEDOWN) Gastroesophageal Reflux, Diverticulosis Musculoskeletal: Yes (RIGHT KNEE REPLACEMENT) Arthritis, Gout Endocrine: No HEENT: Yes Cataract Loss of Vision: Denies Hearing Impairment: Denies Cancer: Yes Skin Did You Recieve Any Treatments: Yes What Type of Treatment Did You: Surgical Intervention Psychosocial: No Integumentary: No Blood Disorders: No Adverse Reaction/Blood Tranf: No Family Medical History Alzheimer's disease FHx: breast cancer in first degree relative G8 SISTER No Pertinent Family Hx PSH: -EGD'S/COLONOSCOPIES -CATARACT SURGERY -REMOVAL OF SKIN CANCER -APPENDECTOMY -LEFT ARM DIALYSIS SHUNT/GRAFT/AV FISTULA -RIGHT KNEE REPLACEMENT -COLON RESECTION WITH DIVERTING COLOSTOMY FOR DIVERTICULITIS, WITH LATER TAKEDOWN/REVERSAL -VALVE REPLACEMENT -PACEMAKER Physical Exam Vital Signs Vital Signs - First Documented 08/10/20 16:48 Pulse 70 Resp 20 B/P (MAP) 115/57 (76) Pulse Ox 96 O2 Delivery Room Air Capillary Refill : Less Than 3 Seconds General Appearance: WD/WN, no apparent distress HEENT: PERRL/EOMI, pharynx normal Cardiovascular: normal peripheral pulses, regular rate, rhythm Respiratory: no respiratory distress, no accessory muscle use Skin: other (Hemoclamp on his left forearm at the level of his dialysis AV fistula antecubital fossa.) Procedures/Interventions Wound Location: Upper Extremities Other Wound Location Left antecubital fossa Wound Length (cm): 0.1 Wound Explored: clean Betadine Prep?: Yes (Chlorhexidine) Volume Anesthetic (ccs): 1 Wound Debrided: minimal Suture: Prolene Suture Size: 4-0 Number of Sutures: 2 Progress Punctate needle wound with slow pumping blood. Put in a single pursestring stitch and he still had a small amount of oozing so a second pursestring stitch was placed which caused hemostasis opposite to the first pursestring stitch. Progress/Results/Core Measures Results/Orders Vital Signs/I&O 08/10/20 16:48 Pulse 70 Resp 20 B/P (MAP) 115/57 (76) Pulse Ox 96 O2 Delivery Room Air Blood Pressure Mean: 76 Departure Impression Primary Impression: Hemorrhage from arteriovenous dialysis graft Disposition: 01 HOME, SELF-CARE Condition: Stable Departure-Patient Inst. Decision time for Depature: 17:11 Referrals: ALANA BUTT DO (PCP/Family) Primary Care Physician Patient Instructions: Arteriovenous Shunt (DC) Add. Discharge Instructions: If the wound oozes then elevate your arm above the level of your head and apply direct pressure. If you cannot get it to stop bleeding after 20 minutes of elevation and pressure then please return to the ER. Plan to have your dialysis nurse remove the stitches in 7 to 10 days. All discharge instructions reviewed with patient and/or family. Voiced understanding. XAVIER LEE Aug 10, 2020 17:13
== END 2020-08-10 17:20 | disposition home or self-care (01) ==
LOC: EDUNIT# 16:48 → ER 16:50
DX: T82.838A Hemorrhage due to vascular prosthetic devices, implants and grafts, initial encounter (principal); I10 Essential (primary) hypertension; E78.00 Pure hypercholesterolemia, unspecified; Z80.3 Family history of malignant neoplasm of breast; Z85.828 Personal history of other malignant neoplasm of skin; Z95.0 Presence of cardiac pacemaker; Z87.891 Personal history of nicotine dependence

== ENCOUNTER 2020-08-11 03:29 | Emergency (ER) | payer MEDICARE, OTHER ==
--- NOTE | 2020-08-11 03:44 | NUR ---
DELAYED CAP. REFIL NOTED TO L LOWER EXTREMITY. UNABLE TO PALPATE L RADIAL PULSE. EXTREMITY COOL ET PINK. Addendum: 08/11/20 at 0345 by OTONIEL BLEEDING TO L AV FISTULA CONTROLLED WITH TOURNIQUET ET PRESSURE DRSG TO SITE.
[2020-08-11] MEDS ORDERED: LIDOCAINE PF 2% 5 ML (XYLOCAINE) VIAL ONE (03:49)
--- NOTE | 2020-08-11 03:50 | NUR ---
TOURNIQUET REMOVED PER DR. GHOSH REQUEST AT THIS TIME.
--- NOTE | 2020-08-11 04:00 | NUR ---
DR. GHOSH ARRIVES AT BEDSIDE. PRESSURE DRSG REMOVED. NO ACTIVE BLEEDING NOTED AT THIS TIME. ACTIVE THRILL FELT TO AV FISTULA.
[2020-08-11 04:05] LABS: BASOPHILS # (AUTO) 0.1 10^3/uL (0.0-0.1); BASOPHILS % (AUTO) 1 % (0-10); EOSINOPHILS # (AUTO) 0.4 10^3/uL (0.0-0.3); EOSINOPHILS % (AUTO) 6 % (0-10); HEMATOCRIT 32 % (40-54); HEMOGLOBIN 9.7 g/dL (13.3-17.7); LYMPHOCYTES # (AUTO) 1.2 10^3/uL (1.0-4.0); LYMPHOCYTES % (AUTO) 17 % (12-44); MEAN CORPUSCULAR HEMOGLOBIN 31 pg (25-34); MEAN CORPUSCULAR HGB CONC 30 g/dL (32-36); MEAN CORPUSCULAR VOLUME 102 fL (80-99); MEAN PLATELET VOLUME 11.7 fL (9.0-12.2); MONOCYTES # (AUTO) 1.2 10^3/uL (0.0-1.0); MONOCYTES % (AUTO) 18 % (0-12); NEUTROPHILS % (AUTO) 58 % (42-75); PLATELET COUNT 166 10^3/uL (130-400); WHITE BLOOD COUNT 6.8 10^3/uL (4.3-11.0)
[2020-08-11 04:10] LABS: INR 1.2 (0.8-1.4); PROTHROMBIN TIME PATIENT 15.2 SEC (12.2-14.7)
--- NOTE | 2020-08-11 04:13 | ED General ---
General Chief Complaint: General Problems/Pain Stated Complaint: SHUNT AREA BLEEDING Nursing Triage Note: PT ARRIVES [facility]IA [facility] FROM HOME WITH C/O BLEEDING AV FISTULA. EMS ADVISE UPON ARRIVAL ON SCENE, APPROX 1L BLOOD LOSS NOTED FROM ACTIVELY BLEEDING L AV FISTULA. UPON ARRIVAL TOURNIQUET ET PRESSURE DRSG NOTED TO SITE. PT REPORTS AFTER RECIEVING DIALYSIS ON 08/10/20 PT WAS SEEN IN THIS ER ET SUTURES WERE PLACED TO FISTULA D/T BLEEDING. PT REPORTS AT APPROX 0245 THIS MORNING WHILE WATCHING TV, FISTULA BEGAN TO BLEED. A&OX4. Nursing Sepsis Screen: No Definite Risk Source of Information: Patient, Old Records History of Present Illness Date Seen by Provider: Aug 11, 2020 Time Seen by Provider: 03:33 Initial Comments PT ARRIVES VIA EMS FROM [facility] PT HAD DIALYSIS THIS AFTERNOON, AND WHEN IT WAS COMPLETED AND NEEDLE REMOVED, PT HAD MASSIVE BLEEDING FROM THE SITE --LEFT UPPER ARM AV FISTULA. SEEN HERE AND 2 PURSE-STRING SUTURES WERE PLACED WITH CONTROL OF BLEEDING PT STATES THAT APPROXIMATELY 45 MINUTES AGO AROUND 0245, HE WAS SITTING AND WATCHING TV AND THE AREA STARTED BLEEDING PROFUSELY AGAIN EMS REPORT THAT THERE WAS APPROXIMATELY A LITER OF BLOOD LOST AT THE SCENE WHEN THEY ARRIVED. . EMS PLACED PRESSURE DRESSING AND A TOURNIQUET, WITH APPARENT CONTROL OF BLEEDING AT THIS TIME PT DENIES ANY PAIN THIS IS A RECURRING PROBLEM, WITH THIS BEING HIS 6TH VISIT HERE SINCE 01/2019 FOR THIS SAME PROBLEM. PT STATES HE HAD FISTULA PLACED AT [facility] IN [place] 4-5 YEARS AGO. PT REPORTS HE HAS NOT FOLLOWED UP WITH VASCULAR SURGEON SINCE THEN FOR THIS PROBLEM. PT IS NO LONGER ON BLOOD THINNERS. WAS ON XARELTO FOR ATRIAL FIBRILLATION, AND HAS ALSO HAD A VALVE REPLACEMENT IN THE PAST. HE ALSO HAS A PACEMAKER IN PLACE. PCP: DR. BUTT HATCHERY HELPER: DR. Diaz"--[facility] Allergies and Home Medications Allergies Coded Allergies: No Known Drug Allergies (Unverified , 04/27/16) Home Medications Fenofibrate,Micronized 134 Mg Capsule, 134 MG PO DAILY, (Reported) Metoprolol Succinate 100 Mg Tab.er.24h, 100 MG PO DAILY, (Reported) Sevelamer Carbonate 800 Mg Tablet, 800 MG PO DAILY Prescribed by: BLAKE TRINH on 12/29/17 5366 Patient Home Medication List Home Medication List Reviewed: Yes Review of Systems Review of Systems Constitutional: no symptoms reported; No dizziness Respiratory: no symptoms reported; No short of breath Cardiovascular: No chest pain Musculoskeletal: see HPI Skin: see HPI Hematologic/Lymphatic: See HPI Past Sqymnmy-Ktuekh-Ytwapc Hx Patient Social History Alcohol Use: Denies Use Recreational Drug Use: No Smoking Status: Former Smoker Type Used: Cigarettes 2nd Hand Smoke Exposure: No Recent Foreign Travel: No Contact w/Someone Who Travel: No Recent Infectious Disease Expo: No Recent Hopitalizations: No Immunizations Up To Date Tetanus Booster (TDap): Unknown PED Vaccines UTD: No Date of Pneumonia Vaccine: Apr 12, 2015 Date of Influenza Vaccine: Apr 12, 2015 Seasonal Allergies Seasonal Allergies: No Past Medical History Surgeries: Yes Abdominal, Appendectomy, Cardiac, Dialysis, Orthopedic, Valve Replacement, Vascular Surgery Respiratory: No Cardiac: Yes (PACEMAKER; VALVE REPLACEMENT) Chronic Edema/Swelling, High Cholesterol, Hypertension, Irregular Heartbeat, Valvular Heart Disease Neurological: No Reproductive Disorders: No Genitourinary: Yes Benign Prostatic Hyperpl, Kidney Stones, Renal Failure, Dialysis Gastrointestinal: Yes (S/P COLON RESECTION/COLOSTOMY/LATER TAKEDOWN) Gastroesophageal Reflux, Diverticulosis Musculoskeletal: Yes (RIGHT KNEE REPLACEMENT) Arthritis, Gout Endocrine: No HEENT: Yes Cataract Loss of Vision: Denies Hearing Impairment: Denies Cancer: Yes Skin Did You Recieve Any Treatments: Yes What Type of Treatment Did You: Surgical Intervention Psychosocial: No Integumentary: No Blood Disorders: No Adverse Reaction/Blood Tranf: No Family Medical History Alzheimer's disease FHx: breast cancer in first degree relative G8 SISTER No Pertinent Family Hx PSH: -EGD'S/COLONOSCOPIES -CATARACT SURGERY -REMOVAL OF SKIN CANCER -APPENDECTOMY -LEFT ARM DIALYSIS SHUNT/GRAFT/AV FISTULA -RIGHT KNEE REPLACEMENT -COLON RESECTION WITH DIVERTING COLOSTOMY FOR DIVERTICULITIS, WITH LATER TAKEDOWN/REVERSAL -VALVE REPLACEMENT -PACEMAKER -LEFT HIP FRACTURE/ORIF 10/2019 Physical Exam Vital Signs Vital Signs - First Documented 08/11/20 03:33 Temp 35.8 Pulse 68 Resp 18 B/P (MAP) 137/66 (89) Pulse Ox 96 O2 Delivery Nasal Cannula O2 Flow Rate 4.00 Capillary Refill : Greater Than 3 Seconds Height, Weight, BMI Height: 5'7.00" Weight: 185lbs. 8.0oz. 83.098231dq; BMI Method:Stated General Appearance: No Apparent Distress, WD/WN Extremity: Other (LEFT UPPER ARM WITH HEAVY PRESSURE DRESSING IN PLACE, WITH TOURNIQUET APPLIED ABOVE IT BY EMS. HAND IS SLIGHTLY DUSKY. AV FISTULA/GRAFT IS VERY LARGE/VERY DILATED, WITH STRONG THRILL PRESENT. NO TENDER. HAS BRUSING AROUND THE AREA. SUTURES ARE IN PLACE AND INTACT. ) Procedures/Interventions Suture Size: 4-0 Progress/Results/Core Measures Suspected Sepsis Recent Fever Within 48 Hours: No Infection Criteria Present: None New/Unexplained Altered Menta: No Sepsis Screen: No Definite Risk SIRS Temperature: Pulse: 68 Respiratory Rate: 18 Laboratory Tests 08/11/20 03:36: White Blood Count 6.8 Blood Pressure 137 /66 Mean: 89 Laboratory Tests 08/11/20 03:36: INR Comment 1.2, Platelet Count 166 Results/Orders Lab Results Laboratory Tests Test 08/11/20 03:36 Range/Units White Blood Count 6.8 4.3-11.0 10^3/uL Red Blood Count 3.16 L 4.30-5.52 10^6/uL Hemoglobin 9.7 L 13.3-17.7 g/dL Hematocrit 32 L 40-54 % Mean Corpuscular Volume 102 H 80-99 fL Mean Corpuscular Hemoglobin 31 25-34 pg Mean Corpuscular Hemoglobin Concent 30 L 32-36 g/dL Red Cell Distribution Width 18.8 H 10.0-14.5 % Platelet Count 166 130-400 10^3/uL Mean Platelet Volume 11.7 9.0-12.2 fL Immature Granulocyte % (Auto) 1 % Neutrophils (%) (Auto) 58 42-75 % Lymphocytes (%) (Auto) 17 12-44 % Monocytes (%) (Auto) 18 H 0-12 % Eosinophils (%) (Auto) 6 0-10 % Basophils (%) (Auto) 1 0-10 % Neutrophils # (Auto) 4.0 1.8-7.8 10^3/uL Lymphocytes # (Auto) 1.2 1.0-4.0 10^3/uL Monocytes # (Auto) 1.2 H 0.0-1.0 10^3/uL Eosinophils # (Auto) 0.4 H 0.0-0.3 10^3/uL Basophils # (Auto) 0.1 0.0-0.1 10^3/uL Immature Granulocyte # (Auto) 0.0 0.0-0.1 10^3/uL Prothrombin Time 15.2 H 12.2-14.7 SEC INR Comment 1.2 0.8-1.4 Activated Partial Thromboplast Time 37 H 24-35 SEC My Orders Orders - MARITA RUFF DO Cbc With Automated Diff (08/11/20 03:52) Protime With Inr (08/11/20 03:52) Partial Thromboplastin Time (08/11/20 03:52) Lidocaine 2% Pf 5 Ml (Xylocaine 2% Pf) (08/11/20 03:49) Vital Signs/I&O Capillary Refill : Greater Than 3 Seconds Blood Pressure Mean: 89 Progress Note : Progress Note TOURNIQUET REMOVED, WITH [id number] IN DUSKINESS OF LEFT HAND, AND THEN PRESSURE DRESSING REMOVED . DR. GHOSH PRESENT. NO BLEEDING AT THIS TIME. SUTURES THAT WERE PLACED ON PREVIOUS ER VISIT ARE INTACT. PT OBSERVED IN ER FOR OVER AN HOUR WITH NO BLEEDING. DISCUSSED WITH DR. GHOSH, STILL IN ER, AND ADVISES TO SEND PT HOME WITH INSTRUCTIONS TO RETURN IF AREA RE- BLEEDS. Departure Communication (Admissions) 0335--CALLED JESSICA, ON [facility]ERS[facility], CANNOT ACCEPT PT 0341--CALLED [facility], ON [facility]ERSION, CANNOT ACCEPT PT 0346--SPOKE WITH DR. GHOSH, SURGEON [employer]. WILL BE IN TO SEE PT. 0400--DR. GHOSH HERE Impression Primary Impression: Hemorrhage from arteriovenous dialysis graft Additional Impressions: RECURRENT BLEEDING FROM LEFT AV FISTULA / DIALYSIS GRAFT ESRD (end stage renal disease) on dialysis Disposition: HOME, SELF-CARE Condition: Stable Departure-Patient Inst. Referrals: ALANA BUTT DO (PCP/Family) Primary Care Physician Patient Instructions: Arteriovenous Fistula for Dialysis (DC) Add. Discharge Instructions: IF YOU HAVE BLEEDING AGAIN FROM THE SITE, APPLY PRESSURE AND ELEVATE YOUR ARM FOR 20 MINUTES IF YOU CONTINUE TO HAVE BLEEDING, RETURN TO ER OTHERWISE, YOU SHOULD CONTACT YOUR HATCHERY HELPER OR YOUR PRIMARY CARE DRJodi FOR REFERRAL FOR POSSIBLE REVISION OF DIALYSIS FISTULA All discharge instructions reviewed with patient and/or family. Voiced understanding. MARITA RUFF DO Aug 11, 2020 04:13
[2020-08-11 05:30] VITALS: BP 136/63
--- NOTE | 2020-08-11 15:07 | Consultation - Surgery ---
History of Present Illness History of Present Illness Patient Consulted On(radha/time) 08/11/20 04:32 Date Seen by Provider: Aug 11, 2020 Time Seen by Provider: 04:32 History of Present Illness Consult requested by Dr. Jimenez for bleeding left upper extremity fistula. Patient is a 79 year old male on dialysis and has left upper extremity AV Fistula. Patient had dialysis yesterday and had bleeding later in the day. He presented to the ED and had to have sutures placed to control bleeding. Patient was discharged. Patient woke up in [facility] at about 0245 was found to have significant bleeding occur again with EMS stating about 1 L of blood on the floor. Pressure dressing and Tourniquet was placed by ems. Patient brought for further evaluation. Patient currently no tourniquet on upon my arrival and has pressure dressing on. He does not complain of any pain. Has had several instances of bleeding Over the time of having fistula has increased in size. No other complaints, denies n/v fever sweats chills shortness of breath or chest pain. Allergies and Home Medications Allergies Coded Allergies: No Known Drug Allergies (Unverified , 04/27/16) Home Medications Fenofibrate,Micronized 134 Mg Capsule, 134 MG PO DAILY, (Reported) Metoprolol Succinate 100 Mg Tab.er.24h, 100 MG PO DAILY, (Reported) Sevelamer Carbonate 800 Mg Tablet, 800 MG PO DAILY Prescribed by: BLAKE TRINH on 12/29/17 4084 Patient Home Medication List Home Medication List Reviewed: Yes Past Yckbfwz-Ihcbzx-Mmkngf Hx Patient Social History Alcohol Use: Denies Use Recreational Drug Use: No Smoking Status: Former Smoker Type Used: Cigarettes 2nd Hand Smoke Exposure: No Recent Foreign Travel: No Contact w/Someone Who Travel: No Recent Infectious Disease Expo: No Recent Hopitalizations: No Immunizations Up To Date Tetanus Booster (TDap): Unknown PED Vaccines UTD: No Date of Pneumonia Vaccine: Apr 12, 2015 Date of Influenza Vaccine: Apr 12, 2015 Seasonal Allergies Seasonal Allergies: No Surgeries History of Surgeries: Yes Surgeries: Abdominal, Appendectomy, Cardiac, Dialysis, Orthopedic, Valve Replacement, Vascular Surgery Respiratory History of Respiratory Disorde: No Cardiovascular History of Cardiac Disorders: Yes (PACEMAKER; VALVE REPLACEMENT) Cardiac Disorders: Chronic Edema/Swelling, High Cholesterol, Hypertension, Irregular Heartbeat, Valvular Heart Disease Neurological History of Neurological Disord: No Reproductive System Hx Reproductive Disorders: No Genitourinary History of Genitourinary Disor: Yes Genitourinary Disorders: Benign Prostatic Hyperpl, Kidney Stones, Renal Failure, Dialysis Gastrointestinal History of Gastrointestinal Di: Yes (S/P COLON RESECTION/COLOSTOMY/LATER TAKEDOWN) Gastrointestinal Disorders: Gastroesophageal Reflux, Diverticulosis Musculoskeletal History of Musculoskeletal Dis: Yes (RIGHT KNEE REPLACEMENT) Musculoskeletal Disorders: Arthritis, Gout Endocrine History of Endocrine Disorders: No HEENT History of HEENT Disorders: Yes HEENT Disorders: Cataract Loss of Vision: Denies Hearing Impairment: Denies Cancer History of Cancer: Yes Cancer: Skin Psychosocial History of Psychiatric Problem: No Integumentary History of Skin or Integumenta: No Blood Transfusions History of Blood Disorders: No Adverse Reaction to a Blood Tr: No Reviewed Nursing Assessment Reviewed/Agree w Nursing PMH: Yes Family Medical History Significant Family History: No Pertinent Family Hx Family Medial History: Alzheimer's disease FHx: breast cancer in first degree relative G8 SISTER Review of Systems-General Constitutional: No chills, No diaphoresis EENTM: No hearing loss, No blurred vision Respiratory: No cough, No dyspnea on exertion, No short of breath Cardiovascular: No chest pain, No edema Gastrointestinal: No abdominal pain, No hematemesis, No heartburn Genitourinary: No decreased output, No discharge Musculoskeletal: No back pain, No joint pain Skin: change in color (bruising left arm) Psychiatric/Neurological: Denies Anxiety, Denies Depressed, Denies Emotional Problems All Other Systems Reviewed Negative Unless Noted: Yes (Negative excepted noted.) Physical Exam-General Problems Physical Exam Vital Signs Vital Signs - First Documented 08/11/20 03:33 Temp 35.8 Pulse 68 Resp 18 B/P (MAP) 137/66 (89) Pulse Ox 96 O2 Delivery Nasal Cannula O2 Flow Rate 4.00 Capillary Refill : Greater Than 3 Seconds General Appearance: WD/WN, no apparent distress, other (chronically ill appearing) HEENT: PERRL/EOMI, normal ENT inspection Neck: non-tender, supple, normal inspection Respiratory: chest non-tender, no respiratory distress, no accessory muscle use Cardiovascular: regular rate, rhythm, no JVD Gastrointestinal: non tender, soft Rectal: deferred Back: no CVA tenderness, no vertebral tenderness Extremities: other (left upper extremity with av fistula good thrill, stiches at puncture site of fistula, no active bleeding currently. slightly delayed cap refill distal left arm) Neurologic/Psychiatric: alert, normal mood/affect, oriented x 3 Skin: warm/dry, other (minimall delayed cap refill left arm, bruising left upper ext.) Lymphatic: no adenopathy Data Review Labs Laboratory Tests 08/11/20 03:36: White Blood Count 6.8, Red Blood Count 3.16L, Hemoglobin 9.7L, Hematocrit 32L, Mean Corpuscular Volume 102H, Mean Corpuscular Hemoglobin 31, Mean Corpuscular Hemoglobin Concent 30L, Red Cell Distribution Width 18.8H, Platelet Count 166, Mean Platelet Volume 11.7, Immature Granulocyte % (Auto) 1, Neutrophils (%) (Auto) 58, Lymphocytes (%) (Auto) 17, Monocytes (%) (Auto) 18H, Eosinophils (%) (Auto) 6, Basophils (%) (Auto) 1, Neutrophils # (Auto) 4.0, Lymphocytes # (Auto) 1.2, Monocytes # (Auto) 1.2H, Eosinophils # (Auto) 0.4H, Basophils # (Auto) 0.1, Immature Granulocyte # (Auto) 0.0, Prothrombin Time 15.2H, INR Comment 1.2, Activated Partial Thromboplast Time 37H Assessment/Plan Assessment/Plan Assessment/Plan recurrent bleeding AV fistula left upper extremity chronic kidney disease requiring dialysis sutures placed at earlier er visit, recurrent bleed. Pressure held and controlled monitored and has stopped. Patient has large dilated fistula would consider follow up with vascular surgery for possible revision fistula has good thrill at this time. No surgical intervention RAFFY GHOSH DO Aug 11, 2020 15:07
== END 2020-08-11 05:30 | disposition home or self-care (01) ==
LOC: EDUNIT# 03:29 → ER 03:31
DX: R58 Hemorrhage, not elsewhere classified (principal); T82.838A Hemorrhage due to vascular prosthetic devices, implants and grafts, initial encounter; I12.0 Hypertensive chronic kidney disease with stage 5 chronic kidney disease or end stage renal disease; N18.6 End stage renal disease; E78.00 Pure hypercholesterolemia, unspecified; Z99.2 Dependence on renal dialysis; Z87.891 Personal history of nicotine dependence; Z85.828 Personal history of other malignant neoplasm of skin; Z80.3 Family history of malignant neoplasm of breast
CPT/HCPCS: 36415; 85025; 85610; 85730

== ENCOUNTER 2020-08-16 15:39 | Inpatient (IN) | payer MEDICARE, OTHER ==
[~2020-08-16] VITALS: Ht 170 cm; Wt 83.2 kg
[2020-08-16 16:22] LABS: BASOPHILS % (AUTO) 0 % (0-10); EOSINOPHILS % (AUTO) 0 % (0-10); HEMATOCRIT 28 % (40-54); HEMOGLOBIN 8.2 g/dL (13.3-17.7); LYMPHOCYTES # (AUTO) 0.6 10^3/uL (1.0-4.0); LYMPHOCYTES % (AUTO) 4 % (12-44); MEAN CORPUSCULAR HEMOGLOBIN 31 pg (25-34); MEAN CORPUSCULAR HGB CONC 29 g/dL (32-36); MEAN CORPUSCULAR VOLUME 105 fL (80-99); MEAN PLATELET VOLUME 11.4 fL (9.0-12.2); MONOCYTES # (AUTO) 1.2 10^3/uL (0.0-1.0); MONOCYTES % (AUTO) 9 % (0-12); NEUTROPHILS # (AUTO) 12.3 10^3/uL (1.8-7.8); NEUTROPHILS % (AUTO) 87 % (42-75); PLATELET COUNT 187 10^3/uL (130-400); WHITE BLOOD COUNT 14.2 10^3/uL (4.3-11.0)
[2020-08-16 16:40] LABS: ABG BASE EXCESS 6.5 MMOL/L (-2.5-2.5); ABG OXYGEN SATURATION 95 % (94-100); ABG PCO2 40 MMHG (35-45); ABG PH 7.49 (7.37-7.43); ABG PO2 80 MMHG (79-93); ABG TCO2 31.2 MMOL/L (21.0-31.0); ALLENS TEST YES-POS; INSPIRED O2 8; PATIENT TEMP 98.9; VENTILATOR NO
[2020-08-16 16:44] LABS: ALBUMIN 3.6 GM/DL (3.2-4.5); BILIRUBIN,TOTAL 2.6 MG/DL (0.1-1.0); CALCIUM 10.1 MG/DL (8.5-10.1); CREATININE SERUM 4.61 MG/DL (0.60-1.30); POTASSIUM 4.3 MMOL/L (3.6-5.0); TOTAL PROTEIN 7.5 GM/DL (6.4-8.2)
[2020-08-16 16:51] LABS: ANISOCYTOSIS MODERATE; BAND NEUTROPHILS 1 %; LYMPHOCYTES % (MANUAL) 4 %; MONOCYTES % (MANUAL) 6 %; NEUTROPHILS % (MANUAL) 89 %; POLYCHROMASIA SLIGHT
--- NOTE | 2020-08-16 17:35 | Diagnostic Imaging Report ---
INDICATION: Cough. COMPARISON with 10/22/2019. FINDINGS: Cardiomegaly with prosthetic aortic valve is again noted unchanged in appearance. Pacemaker on the right remains in good position. The lungs are well-aerated with mild interstitial disease bilaterally. No acute infiltrates have occurred. No evidence of pulmonary edema. No pneumothorax or pleural effusion. IMPRESSION: No acute changes demonstrated when compared with previous exam. Dictated by: Dictated on workstation # [id number]
--- NOTE | 2020-08-16 18:17 | ED Respiratory ---
General Chief Complaint: Respiratory Problems Stated Complaint: SEPSIS/SOB/FEVER Nursing Triage Note: PT TO ED PER EMS FROM DR GONZALEZ OFFICE WITH C/O COUGH/SOB. Source: patient, family Exam Limitations: no limitations History of Present Illness Date Seen by Provider: Aug 16, 2020 Time Seen by Provider: 18:18 Initial Comments Patient is a 79-year-old male who presents today by EMS from Dr. Cueva's office with a chief complaint of cough and shortness of breath. Patient history primarily comes from the daughter, I spoke with her over the telephone. Patient reports that he has had some significant bleeding from his AV fistula site in his left arm last Saturday. He had a couple of ER visits regarding bleeding and actually had sutures placed in the fistula site by Dr. Helton. Patient is complaining last night of pain in his left arm that disrupted his sleep all night long last night. His daughter states that he had taken some Tylenol as well as some hydrocodone for the pain which helped a little bit. Today he went to Dr. Cueva's office for the pain in the arm. He was noted to be short of breath and have low blood pressure so he was sent to the emergency department for further evaluation. His daughter states that last night at home his blood pressure was running 80/[address] Cueva's office he was 98/40. His daughter also states that she had to increase his oxygen for which she is on 4 L up to 6 L last evening. He normally lives at [facility] in independent living and is able to take care of himself but was too weak today to really do that. He has a history of cardiac stent placement and valve replacement. His spa attendant is Dr. Arzate at [facility]. He does dialyze on Wednesdays and Fridays through [facility]. Patient has not missed any dialysis. He complains of pain in the left arm that radiates up his arm into his back and across into his right arm. He denies feeling short of breath currently. He is currently not coughing. Patient had laboratory studies prior to my evaluation which show an elevated white blood cell count with a left shift. He has an elevated procalcitonin as well as an elevated CRP. His rapid Covid test is negative. Patient's chest x- ray is reviewed and is clear of infiltrates effusions or pulmonary edema. However his BNP is elevated. He does have trace pitting edema in the bilateral lower extremities. He states that the left arm is tender to touch. He does have a palpable thrill. The patient states that he still does occasionally make urine. He denies any symptoms associated with this. All other review of systems reviewed and negative except as stated above. Timing/Duration: week, other (unknown) Severity: moderate Associated Symptoms: shortness of breath Allergies and Home Medications Allergies Coded Allergies: No Known Drug Allergies (Unverified , 04/27/16) Home Medications Acetaminophen/Diphenhydramine 1 Each Tablet, 2 EACH PO HS, (Reported) Amiodarone HCl 200 Mg Tablet, 200 MG PO BID, (Reported) Amlodipine Besylate 5 Mg Tablet, 5 MG PO DAILY, (Reported) Aspirin 81 Mg Tablet.dr, 81 MG PO DAILY, (Reported) Atorvastatin Calcium 40 Mg Tablet, 40 MG PO HS, (Reported) Cyanocobalamin (Vitamin B-12) 2,000 Mcg Tablet, 2,000 MCG PO DAILY, (Reported) Fenofibrate,Micronized 134 Mg Capsule, 134 MG PO HS, (Reported) Folic Acid 1 Mg Tablet, 1 MG PO DAILY, (Reported) Hydroxyzine HCl 10 Mg Tablet, 5 MG PO DAILY, (Reported) TAKES 1/2 (10MG) TABLET Sevelamer Carbonate 800 Mg Tablet, 1,600 MG PO TIDWM, (Reported) TAKES 3 (800MG) TABLETS THREE TIMES A DAY WITH MEALS Patient Home Medication List Home Medication List Reviewed: Yes Review of Systems Review of Systems Constitutional: see HPI EENTM: no symptoms reported Respiratory: cough, short of breath Cardiovascular: no symptoms reported, see HPI; No chest pain Gastrointestinal: no symptoms reported Genitourinary: no symptoms reported Musculoskeletal: other (Complains of pain to the left arm at the area of his AV fistula) Skin: no symptoms reported Psychiatric/Neurological: No Symptoms Reported All Other Systems Reviewed Negative Unless Noted: Yes Past Fqbjrax-Muyany-Srvlrx Hx Patient Social History Alcohol Use: Denies Use Recreational Drug Use: No Smoking Status: Former Smoker Type Used: Cigarettes 2nd Hand Smoke Exposure: No Recent Foreign Travel: No Contact w/Someone Who Travel: No Recent Infectious Disease Expo: No Recent Hopitalizations: No Immunizations Up To Date Tetanus Booster (TDap): Unknown PED Vaccines UTD: No Date of Pneumonia Vaccine: Apr 12, 2015 Date of Influenza Vaccine: Apr 12, 2015 Seasonal Allergies Seasonal Allergies: No Past Medical History Surgeries: Yes Abdominal, Appendectomy, Cardiac, Dialysis, Orthopedic, Valve Replacement, Vascular Surgery Respiratory: No Cardiac: Yes (PACEMAKER; VALVE REPLACEMENT) Chronic Edema/Swelling, High Cholesterol, Hypertension, Irregular Heartbeat, Valvular Heart Disease Neurological: No Reproductive Disorders: No Genitourinary: Yes Benign Prostatic Hyperpl, Kidney Stones, Renal Failure, Dialysis Gastrointestinal: Yes (S/P COLON RESECTION/COLOSTOMY/LATER TAKEDOWN) Gastroesophageal Reflux, Diverticulosis Musculoskeletal: Yes (RIGHT KNEE REPLACEMENT) Arthritis, Gout Endocrine: No HEENT: Yes Cataract Loss of Vision: Denies Hearing Impairment: Denies Cancer: Yes Skin Did You Recieve Any Treatments: Yes What Type of Treatment Did You: Surgical Intervention Psychosocial: No Integumentary: No Blood Disorders: No Adverse Reaction/Blood Tranf: No Family Medical History Alzheimer's disease FHx: breast cancer in first degree relative G8 SISTER No Pertinent Family Hx PSH: -EGD'S/COLONOSCOPIES -CATARACT SURGERY -REMOVAL OF SKIN CANCER -APPENDECTOMY -LEFT ARM DIALYSIS SHUNT/GRAFT/AV FISTULA -RIGHT KNEE REPLACEMENT -COLON RESECTION WITH DIVERTING COLOSTOMY FOR DIVERTICULITIS, WITH LATER TAKEDOWN/REVERSAL -VALVE REPLACEMENT -PACEMAKER -LEFT HIP FRACTURE/ORIF 10/2019 Physical Exam Vital Signs - First Documented 08/16/20 08/16/20 15:39 15:40 Temp 37.1 Pulse 81 Resp 24 B/P (MAP) 105/49 (67) Pulse Ox 86 O2 Delivery Nasal Cannula O2 Flow Rate 6.00 Capillary Refill : Less Than 3 Seconds Height: 5'7.00" Weight: 185lbs. 8.0oz. 83.513578fd; 29.00 BMI Method:Stated General Appearance: WD/WN, no apparent distress HEENT: PERRL/EOMI Respiratory: lungs clear, normal breath sounds, no respiratory distress Cardiovascular: regular rate, rhythm Gastrointestinal: non tender, soft Extremities: normal range of motion, other (Patient has AV fistula in the left arm, aneurysmal, palpable thrill, tender to palpation; small Prolene suture visible at the fistula) Neurologic/Psychiatric: alert, normal mood/affect, oriented x 3 Skin: normal color, warm/dry Focused Exam Lactate Level 08/16/20 11:30: Lactic Acid Level 1.94 08/16/20 19:35: Lactic Acid Level 2.17*H Lactic Acid Level Laboratory Tests Test 08/16/20 11:30 08/16/20 19:35 Lactic Acid Level 1.94 MMOL/L (0.50-2.00) 2.17 MMOL/L (0.50-2.00) *H Procedures/Interventions Suture Size: 4-0 Progress/Results/Core Measures Suspected Sepsis Recent Fever Within 48 Hours: No Infection Criteria Present: Suspected New Infection New/Unexplained Altered Menta: No Sepsis Screen: No Definite Risk SIRS Temperature: Pulse: 81 Respiratory Rate: 24 Laboratory Tests 08/16/20 16:05: White Blood Count 14.2H Blood Pressure 105 /49 Mean: 67 08/16/20 11:30: Lactic Acid Level 1.94 08/16/20 19:35: Lactic Acid Level 2.17*H Laboratory Tests 08/16/20 16:05: Creatinine 4.61H, Platelet Count 187, Total Bilirubin 2.6H Results/Orders Lab Results Laboratory Tests Test 08/16/20 11:30 08/16/20 15:52 08/16/20 16:05 08/16/20 16:10 Range/Units Lactic Acid Level 1.94 0.50-2.00 MMOL/L Coronavirus 2019 (LEANDRA) Negative Negative White Blood Count 14.2 H 4.3-11.0 10^3/uL Red Blood Count 2.68 L 4.30-5.52 10^6/uL Hemoglobin 8.2 L 13.3-17.7 g/dL Hematocrit 28 L 40-54 % Mean Corpuscular Volume 105 H 80-99 fL Mean Corpuscular Hemoglobin 31 25-34 pg Mean Corpuscular Hemoglobin Concent 29 L 32-36 g/dL Red Cell Distribution Width 18.9 H 10.0-14.5 % Platelet Count 187 130-400 10^3/uL Mean Platelet Volume 11.4 9.0-12.2 fL Immature Granulocyte % (Auto) 1 % Neutrophils (%) (Auto) 87 H 42-75 % Lymphocytes (%) (Auto) 4 L 12-44 % Monocytes (%) (Auto) 9 0-12 % Eosinophils (%) (Auto) 0 0-10 % Basophils (%) (Auto) 0 0-10 % Neutrophils # (Auto) 12.3 H 1.8-7.8 10^3/uL Lymphocytes # (Auto) 0.6 L 1.0-4.0 10^3/uL Monocytes # (Auto) 1.2 H 0.0-1.0 10^3/uL Eosinophils # (Auto) 0.0 0.0-0.3 10^3/uL Basophils # (Auto) 0.0 0.0-0.1 10^3/uL Immature Granulocyte # (Auto) 0.1 0.0-0.1 10^3/uL Neutrophils % (Manual) 89 % Lymphocytes % (Manual) 4 % Monocytes % (Manual) 6 % Band Neutrophils 1 % Polychromasia SLIGHT Anisocytosis MODERATE Sodium Level 137 135-145 MMOL/L Potassium Level 4.3 3.6-5.0 MMOL/L Chloride Level 94 L 98-107 MMOL/L Carbon Dioxide Level 28 21-32 MMOL/L Anion Gap 15 H 5-14 MMOL/L Blood Urea Nitrogen 42 H 7-18 MG/DL Creatinine 4.61 H 0.60-1.30 MG/DL Estimat Glomerular Filtration Rate 12 BUN/Creatinine Ratio 9 Glucose Level 93 70-105 MG/DL Calcium Level 10.1 8.5-10.1 MG/DL Corrected Calcium 10.4 H 8.5-10.1 MG/DL Magnesium Level 2.0 1.6-2.4 MG/DL Total Bilirubin 2.6 H 0.1-1.0 MG/DL Aspartate Amino Transf (AST/SGOT) 43 H 5-34 U/L Alanine Aminotransferase (ALT/SGPT) 21 0-55 U/L Alkaline Phosphatase 82 40-136 U/L Troponin I 0.052 H <0.028 NG/ML C-Reactive Protein High Sensitivity 22.07 H 0.00-0.50 MG/DL B-Type Natriuretic Peptide 2940.1 H <100.0 PG/ML Total Protein 7.5 6.4-8.2 GM/DL Albumin 3.6 3.2-4.5 GM/DL Procalcitonin 7.77 H <0.10 NG/ML Blood Gas Puncture Site RT RAD Blood Gas Patient Temperature 98.9 Arterial Blood pH 7.49 H 7.37-7.43 Arterial Blood Partial Pressure CO2 40 35-45 MMHG Arterial Blood Partial Pressure O2 80 79-93 MMHG Arterial Blood HCO3 30 H 23-27 MMOL/L Arterial Blood Total CO2 31.2 H 21.0-31.0 MMOL/L Arterial Blood Oxygen Saturation 95 94-100 % Arterial Blood Base Excess 6.5 H -2.5-2.5 MMOL/L Eduar Test YES-POS Blood Gas Ventilator Setting NO Blood Gas Inspired Oxygen 8 Test 08/16/20 19:35 Range/Units Lactic Acid Level 2.17 *H 0.50-2.00 MMOL/L Micro Results Microbiology 08/16/20 Blood Culture - Final, Complete Staphylococcus aureus 08/16/20 Blood Culture - Final, Complete Staphylococcus aureus 08/16/20 Influenza Types A,B Antigen (JASON) - Final, Complete My Orders Orders - ALFA JEFFERY MD Blood Culture (08/16/20 18:48) Lactic Acid Analyzer (08/16/20 18:48) Ns (Ivpb) (Sodium Chloride 0.9%) (08/16/20 19:00) Blood Culture (08/16/20 19:27) Cefepime Injection (Maxipime Injection) (08/16/20 19:30) Albumin 25% 25 Gm/100 Ml (Albumin 25% 25 (08/16/20 21:15) Albumin 25% 25 Gm/100 Ml (Albumin 25% 25 (08/16/20 21:15) Hydrocodone/Apap 5/325 Tablet (Lortab 5 (08/16/20 21:30) Medications Given in ED Vital Signs/I&O 08/16/20 08/16/20 08/16/20 15:39 15:40 15:40 Temp 37.1 Pulse 81 Resp 24 B/P (MAP) 105/49 (67) Pulse Ox 86 98 86 O2 Delivery Nasal Cannula OxyMask Nasal Cannula O2 Flow Rate 6.00 10.00 6.00 Capillary Refill : Less Than 3 Seconds Blood Pressure Mean: 67 Progress Note : Time: 21:10 Progress Note Discussed with Dr. Cueva regarding the patient's low blood pressure and concerns for sepsis. She recommended I speak with his back wedger. I did speak with Dr. Mauricio the patient's back wedger. He recommends 50 g of albumin IV and this would improve his blood pressure with the lowest possible volume. Dr. Mauricio states that he will find a dialysis chair for him on as the patient will be in the ICU overnight today and tomorrow. Clinically the patient looks well he is sitting up at the bedside in a chair. He is alert oriented satting 97% on his 4 L of oxygen. His blood pressure has been running in the 83/40 range. Albumin will be infused and hopefully his pressures will stay up so that he does not require any pressors or any other intervention. Further per Dr. Cueva in the morning. ECG Initial ECG Impression Date: Aug 16, 2020 Initial ECG Impression Time: 18:10 Initial ECG Rate: 81 Initial ECG Rhythm: Normal Sinus Initial ECG Impression: Nonspecific Changes Comment Nonspecific ST-T wave changes in the precordial leads, no ST segment elevation or depression or ectopy is noted Critical Care Note Critical Care Start Time: 18:15 Stop Time: 21:15 Total Time (minutes) 1 hour of critical care time in the evaluation and management of this patient with hypotension, sepsis. Multiple discussions with the patient's primary care physician, discussion with the patient's back wedger, review of the medical records. infusion of fluids & albumin. Management of sepsis Departure Communication (Admissions) Time/Spoke to Admitting Phy: 21:[address] Cueva accepts patient for admission to the ICU overnight Time/Spoke to Consulting Phy: 21:02 Discussed with the patient's back wedger, Dr. Mauricio. Recommends 50 g of albumin IV. Impression Primary Impression: Sepsis Qualified Codes: A41.9 - Sepsis, unspecified organism Additional Impression: End-stage renal disease on hemodialysis Disposition: ADMITTED INPATIENT Condition: Stable Admissions Decision to Admit Reason: Admit from ER (General) Decision to Admit/Date: Aug 16, 2020 Time/Decision to Admit Time: 21:14 Departure-Patient Inst. Referrals: ALANA CUEVA DO (PCP/Family) Primary Care Physician ALFA JEFFERY MD Aug 16, 2020 18:17
[2020-08-16] MEDS ORDERED: NS (IVPB) 250 ML IV ONE (19:00)
--- NOTE | 2020-08-16 19:20 | NUR ---
STRAIGHT CATH PERFORMED, UNABLE TO OBTAIN URINE SPECIMEN
[2020-08-16] MEDS ORDERED: CEFEPIME INJECTION 1,000 MG in WATER (STERILE) FOR INJECTION 10 ML IV ONE (19:30)
[2020-08-16] MEDS ORDERED: CEFEPIME 1,000 MG/SWFI 10 ML IV PUSH IV SCH ×2 (20:30)
[2020-08-16] MEDS ORDERED: ALBUMIN 25% 25 GM/100 ML 100 ML IV ONE ×2 (21:15)
[2020-08-16] MEDS ORDERED: HYDROcodone/APAP 5 MG/325 MG (LORTAB) TAB PO ONE (21:30)
[2020-08-16] MEDS ORDERED: HYDROcodone/APAP 5 MG/325 MG (LORTAB) TAB PO PRN (23:15)
[2020-08-17 03:03] VITALS: BP 99/48
[2020-08-17 03:17] LABS: BASOPHILS % (AUTO) 0 % (0-10); EOSINOPHILS % (AUTO) 0 % (0-10); HEMATOCRIT 24 % (40-54); HEMOGLOBIN 7.4 g/dL (13.3-17.7); LYMPHOCYTES # (AUTO) 0.6 10^3/uL (1.0-4.0); LYMPHOCYTES % (AUTO) 4 % (12-44); MEAN CORPUSCULAR HEMOGLOBIN 31 pg (25-34); MEAN CORPUSCULAR HGB CONC 30 g/dL (32-36); MEAN CORPUSCULAR VOLUME 103 fL (80-99); MEAN PLATELET VOLUME 12.1 fL (9.0-12.2); MONOCYTES % (AUTO) 7 % (0-12); NEUTROPHILS # (AUTO) 11.9 10^3/uL (1.8-7.8); NEUTROPHILS % (AUTO) 86 % (42-75); PLATELET COUNT 177 10^3/uL (130-400); WHITE BLOOD COUNT 13.8 10^3/uL (4.3-11.0)
[2020-08-17 03:30] LABS: POTASSIUM 4.3 MMOL/L (3.6-5.0)
[2020-08-17 03:36] LABS: CREATININE SERUM 5.15 MG/DL (0.60-1.30); PHOSPHORUS 4.2 MG/DL (2.3-4.7)
[2020-08-17 03:39] LABS: MAGNESIUM 1.9 MG/DL (1.6-2.4)
--- NOTE | 2020-08-17 04:27 | NUR ---
THIS RN SPOKE WITH THIS PATIENT IN REGARDS TO HIS CODE STATUS. PATIENT IS A/O X4 AND STATES THAT HE WISHES TO BE A DNR. THIS RN EXPLAINED TO THIS PATIENT THAT A DNR STATUS MEANS IN THE EVENT HIS HEART IS TO STOP OR HE IS TO STOP BREATHING, WE WILL NOT DO CHEST COMPRESSIONS NOR INTUBATE. THIS PATIENT ACKNOWLEDGED WHAT A DNR STATUS IS AND STATED AGAIN TO THIS RN THAT HE WISHED TO BE MADE A DNR. THIS RN THEN VERIFIED THIS PATIENT'S WISHES WITH NAT ROTH.
[2020-08-17] MEDS ORDERED: LACTATED RINGERS 1,000 ML IV SCH (06:00)
--- NOTE | 2020-08-17 06:01 | Pulmonary Consultation ---
History of Present Illness History of Present Illness Date Seen by Provider: Aug 17, 2020 Time Seen by Provider: 05:55 Date of Admission Allergies and Home Medications Allergies Coded Allergies: No Known Drug Allergies (Unverified , 04/27/16) Home Medications Fenofibrate,Micronized 134 Mg Capsule, 134 MG PO DAILY, (Reported) Metoprolol Succinate 100 Mg Tab.er.24h, 100 MG PO DAILY, (Reported) Sevelamer Carbonate 800 Mg Tablet, 800 MG PO DAILY Prescribed by: BLAKE TRINH on 12/29/17 [id number] Past Uakuxjg-Uppahf-Cmvjad Hx Patient Social History Alcohol Use: Denies Use Recreational Drug Use: No Smoking Status: Former Smoker Type Used: Cigarettes 2nd Hand Smoke Exposure: No Recent Foreign Travel: No Contact w/Someone Who Travel: No Recent Infectious Disease Expo: No Recent Hopitalizations: No Physical Abuse: No Sexual Abuse: No Mistreated: No Fear: No Immunizations Up To Date Tetanus Booster (TDap): Unknown PED Vaccines UTD: No Date of Pneumonia Vaccine: Apr 12, 2015 Date of Influenza Vaccine: Jul 12, 2020 Seasonal Allergies Seasonal Allergies: No Past Medical History Surgeries: Yes Abdominal, Appendectomy, Cardiac, Dialysis, Orthopedic, Valve Replacement, Vascu lar Surgery Respiratory: No Cardiac: Yes (PACEMAKER; VALVE REPLACEMENT) Chronic Edema/Swelling, High Cholesterol, Hypertension, Irregular Heartbeat, Valvular Heart Disease Neurological: No Reproductive Disorders: No Genitourinary: Yes Benign Prostatic Hyperpl, Kidney Stones, Renal Failure, Dialysis Gastrointestinal: Yes (S/P COLON RESECTION/COLOSTOMY/LATER TAKEDOWN) Gastroesophageal Reflux, Diverticulosis Musculoskeletal: Yes (RIGHT KNEE REPLACEMENT) Arthritis, Gout Endocrine: No HEENT: Yes Cataract Loss of Vision: Denies Hearing Impairment: Denies Cancer: Yes Skin Did You Recieve Any Treatments: Yes What Type of Treatment Did You: Surgical Intervention Psychosocial: No Integumentary: No Blood Disorders: No Adverse Reaction/Blood Tranf: No Family Medical History Alzheimer's disease FHx: breast cancer in first degree relative G8 SISTER No Pertinent Family Hx PSH: -EGD'S/COLONOSCOPIES -CATARACT SURGERY -REMOVAL OF SKIN CANCER -APPENDECTOMY -LEFT ARM DIALYSIS SHUNT/GRAFT/AV FISTULA -RIGHT KNEE REPLACEMENT -COLON RESECTION WITH DIVERTING COLOSTOMY FOR DIVERTICULITIS, WITH LATER TAKEDOWN/REVERSAL -VALVE REPLACEMENT -PACEMAKER -LEFT HIP FRACTURE/ORIF 10/2019 Review of Systems Time Seen by Provider: 06:04 Sepsis Event Evaluation Height, Weight, BMI Height: 5'7.00" Weight: 185lbs. 8.0oz. 83.518135rc; 29.00 BMI Method:Stated Exam Exam Vital Signs Date Time Temp Pulse Resp B/P (MAP) Pulse Ox O2 Delivery O2 Flow Rate FiO2 08/17/20 04:03 36.2 08/17/20 03:03 37.1 76 95 40 08/17/20 01:00 76 08/16/20 23:11 75 08/16/20 23:00 Nasal Cannula 5.00 08/16/20 23:00 35.9 24 75/54 (61) 92 Nasal Cannula 5.00 08/16/20 22:50 75 18 99/48 95 Nasal Cannula 5.00 08/16/20 15:40 37.1 81 24 105/49 (67) 86 Nasal Cannula 6.00 08/16/20 15:40 98 OxyMask 10.00 08/16/20 15:39 86 Nasal Cannula 6.00 I & O 08/17/20 07:00 Intake Total 200 ml Output Total 0 ml Balance 200 ml Height & Weight Height: 5'7.00" Weight: 185lbs. 8.0oz. 83.647480cd; 29.00 BMI Method:Stated Capillary Refill: Less Than 3 Seconds Gastrointestinal: non tender, soft Results Lab Laboratory Tests 08/16/20 16:05 08/17/20 02:47 Assessment/Plan Assessment/Plan Acute sepsis -Maldonado cultures pending -Maxipime add Zovox -Maldonado cultures Hypotensive -Will give 500cc bolus of LR ESRD -Regular scheduled HD -Pt does not make urine -Pt was sent to our ED from Dr. Cueva's office. -Unable to transfer pt secondary to every hospital being full. Will try to transfer pt to [facility]. Dr. Cueva agrees with [facility]. Elevated troponin Anemia \\ -Monitor DVT/GI ppx -Hep sub Q -BHAVIK Lazar DO Aug 17, 2020 06:01
--- NOTE | 2020-08-17 07:43 | Diagnostic Imaging Report ---
Indication: Sepsis Portable chest shows cardiomegaly with no failure. No mass or acute infiltrate is seen. There is no effusion or pneumothorax. A pacemaker is present. There is no change from 08/16/2020. IMPRESSION: Stable chest. Dictated by: Dictated on workstation # [id number]
[2020-08-17] MEDS ORDERED: LINEZOLID IVPB 300 ML IV SCH (09:00)
[2020-08-17] MEDS ORDERED: FAMOTIDINE 20MG/2ML IV (PEPCID) IV SCH (09:00)
[2020-08-17] MEDS ORDERED: RT-ALBUTEROL INHALER HFA (VENTOLIN HFA) 18 GM IH SCH (09:00)
--- NOTE | 2020-08-17 09:18 | NUR ---
CM/SS: Request from [place] that Dr Gay has requested information be sent for possible placement today - REFERRAL SENT - via fax - [phone].
--- NOTE | 2020-08-17 09:43 | NUR ---
Pt is [employer] and declines sacraments. Estimating Manager provided prayer and blessing.
[2020-08-17] MEDS ORDERED: MIDODRINE 10 MG (PROAMATINE) TAB PO NR (11:00)
[2020-08-17] MEDS ORDERED: LACTATED RINGERS 1,000 ML IV ONE (11:00)
--- NOTE | 2020-08-17 13:18 | Diagnostic Imaging Report ---
INDICATION: Central line placement. EXAMINATION: Portable chest at 12:54 p.m. FINDINGS: There is a dual-chamber pacemaker. There is cardiomegaly. Pulmonary vascularity is normal. Lungs are clear. Patient has prior aortic valve replacement. Left subclavian central line tip projects over the innominate confluence. IMPRESSION: Postsurgical changes in the chest. There is cardiomegaly without evidence of pulmonary venous hypertension. Dictated by: Dictated on workstation # [id number]
[2020-08-17] MEDS ORDERED: NOREPINEPHRINE 4 MG/250 ML 250 ML IV ONE (13:24)
[2020-08-17] MEDS ORDERED: NOREPINEPHRINE 4 MG/250 ML 250 ML IV SCH (13:30)
[2020-08-17 13:32] VITALS: BP 59/47
--- NOTE | 2020-08-17 14:51 | CONSULTATION REPORT ---
DATE OF SERVICE: 08/17/2020 ADMITTING PRIMARY CARE PHYSICIAN: Mirela Cueva DO HISTORY OF PRESENT ILLNESS: The patient is a 79-year-old male who was admitted for weakness, cough as well as shortness of breath. The patient does have an extensive past medical history including renal failure requiring hemodialysis. He was seen in the Emergency Department where his blood pressure was low with a systolic in the 80 range. He also does have a history of coronary artery disease as well as a history of a valve replacement. He was admitted to the ICU and stabilized. He will require hemodialysis. However, due to his hypotension, will require central venous catheter and vasopressor therapy before transfer. PAST MEDICAL HISTORY: Coronary artery disease, hypertension, hypercholesterolemia, renal failure, benign prostatic hypertrophy, gout, degenerative joint disease. PAST SURGICAL HISTORY: Appendectomy, pacemaker implantation as well as cardiac valve replacement, colon resection. ALLERGIES: No known drug allergies. MEDICATIONS: Fenofibrate 134 mg daily, metoprolol 100 mg daily, Sevelamer 800 mg daily. SOCIAL HISTORY: Previous smoke, negative alcohol. FAMILY HISTORY: Noncontributory. VITAL SIGNS: Temperature 37.1, blood pressure 81/52, pulse 76, respirations 37 on 5 liters nasal cannula. REVIEW OF SYSTEMS: Well-nourished male currently in no acute distress. He is experiencing some mild shortness of breath, especially upon exertion. Currently, no cough or sputum production. No nausea, vomiting, no diarrhea, constipation, no red blood per rectum, no dark tarry stools. No fever, chills, no recent inadvertent weight loss. All other review of systems negative. PHYSICAL EXAMINATION: CHEST: Scattered rales bilaterally. HEART: Regular, holosystolic murmur. EXTREMITIES: +1/3 bilateral lower extremity edema, negative Homans sign. HEENT: No scleral icterus. NECK: No cervical lymphadenopathy. ABDOMEN: Soft, nontender, nondistended. SKIN: Warm, dry. LABORATORY DATA: WBC 13.8, hemoglobin 7.4, hematocrit 24, platelets 177, BUN 52, creatinine 5.15. ASSESSMENT AND PLAN: A 79-year-old male with sepsis likely secondary to pneumonia. He does have a history of renal failure and is hemodialysis dependent. He is hypotensive and will require central venous catheter for vasopressor placement and will also be transferred to [place] for hemodialysis. Job ID: [id number] DocumentID: [id number] Dictated Date: 08/17/2020 14:18:06 Intelligence Research Specialist Date: 08/17/2020 14:50:45 Dictated By: CAMILLE HOWARD MD
[2020-08-17] MEDS ORDERED: SEVE800T13 PO (14:52)
[2020-08-17] MEDS ORDERED: AMIO200T50 PO (14:52)
[2020-08-17] MEDS ORDERED: FOLI1TAB24 PO (14:52)
[2020-08-17] MEDS ORDERED: AMLO-250 PO (14:52)
[2020-08-17] MEDS ORDERED: FENO134C PO (14:52)
[2020-08-17] MEDS ORDERED: ATOR40TA70 PO (14:52)
[2020-08-17] MEDS ORDERED: ASPI-1238 PO (14:52)
[2020-08-17] MEDS ORDERED: HYDR-3584 PO (14:52)
[2020-08-17] MEDS ORDERED: ACET-3075 PO (14:52)
[2020-08-17] MEDS ORDERED: CYAN200014 PO (14:54)
--- NOTE | 2020-08-17 14:55 | NUR ---
I SPOKE WITH THE PATIENT'S DAUGHTER AND WENT THROUGH THE EXTERNAL MED HISTORY TO COMPLETE THIS MED REC. DIRECTIONS FOR SEVELAMER 800MG ARE TO TAKE 3 TABLETS TID WITH MEALS, BUT PATIENT TAKES 2 TABLETS TID WITH MEALS. OTC: ASPIRIN VITAMIN B-12 TYLENOL PM
[2020-08-17] MEDS ORDERED: DAPTOmycin 500 MG/NS 50 ML IVPB IV SCH ×2 (15:00)
--- NOTE | 2020-08-17 15:21 | NUR ---
PT transferred to [facility] via EMS. PT a/ox4, VSS, on 5LNC, Levophed at 0.1mcg/kg/min. Report called to Liz JOHNS. [place] notified and updated by phone.
--- NOTE | 2020-08-17 16:53 | Short Stay Summary ---
History of Present Illness History of Present Illness Reason for visit/HPI This is a 79 year old male who is on chronic dialysis who presented to my office with complaints of pain in his fistula and weakness. He was found to be hypotensive, tachycardic and hypoxic with an oxygen saturation in the 80s on 6 liters via NH in my office. It was recommended he go to [facility] for evaluation due to his dialysis but the patient and his daughter did not want to go to [facility] because they felt that they would not admit him due to no beds which is what they have been told the last few times he has been seen there. He agreed to transfer to [facility] emergency room and was found to be septic on admission. There were no available beds for a dialysis patient that could be found--at least 10 different hospitals in [place] and [place] were contacted and could not take the patient. It was decided to admit him at [facility] to stabilize him with hopes that he could go to outpatient dialysis on , 08/18/20--his infectious waste technician said he would make sure the patient could be dialyzed on that day. He will be admitted to the ICU on IV antibiotics and pressors will be started if needed for hypotension. He is unable to receive aggressive sepsis fluids due to his kidney failure so we will hydrate more gently. Date of Admission Aug 16, 2020 at 21:19 Date of Discharge Aug 17, 2020 Time Seen by Provider: 08:35 Attending Physician Mirela Butt DO Admitting Physician Mirela Butt DO Consult Allergies and Home Medications Allergies Coded Allergies: No Known Drug Allergies (Unverified , 04/27/16) Home Medications Acetaminophen/Diphenhydramine 1 Each Tablet, 2 EACH PO HS, (Reported) Amiodarone HCl 200 Mg Tablet, 200 MG PO BID, (Reported) Amlodipine Besylate 5 Mg Tablet, 5 MG PO DAILY, (Reported) Aspirin 81 Mg Tablet.dr, 81 MG PO DAILY, (Reported) Atorvastatin Calcium 40 Mg Tablet, 40 MG PO HS, (Reported) Cyanocobalamin (Vitamin B-12) 2,000 Mcg Tablet, 2,000 MCG PO DAILY, (Reported) Fenofibrate,Micronized 134 Mg Capsule, 134 MG PO HS, (Reported) Folic Acid 1 Mg Tablet, 1 MG PO DAILY, (Reported) Hydroxyzine HCl 10 Mg Tablet, 5 MG PO DAILY, (Reported) TAKES 1/2 (10MG) TABLET Sevelamer Carbonate 800 Mg Tablet, 1,600 MG PO TIDWM, (Reported) TAKES 3 (800MG) TABLETS THREE TIMES A DAY WITH MEALS Patient Home Medication List Home Medication List Reviewed: Yes Past Mjdqsey-Vnbkge-Sgobev Hx Patient Social History Marrital Status: Alcohol Use: Denies Use Recreational Drug Use: No Smoking Status: Former Smoker Type Used: Cigarettes 2nd Hand Smoke Exposure: No Recent Foreign Travel: No Contact w/other who traveled: No Recent Hopitalizations: No Recent Infectious Disease Expo: No Immunizations Up To Date Tetanus Booster (TDap): Unknown Pediatric: No Date of Pneumonia Vaccine: Apr 12, 2015 Date of Influenza Vaccine: Jul 12, 2020 Seasonal Allergies Seasonal Allergies: No Surgeries Yes Abdominal, Appendectomy, Cardiac, Dialysis, Orthopedic, Valve Replacement, Vascular Surgery Respiratory No Cardiovascular Yes (PACEMAKER; VALVE REPLACEMENT) Chronic Edema/Swelling, High Cholesterol, Hypertension, Irregular Heartbeat, Valvular Heart Disease Neurological No Reproductive System Hx Reproductive Disorders: No Genitourinary Yes Benign Prostatic Hyperpl, Kidney Stones, Renal Failure, Dialysis Gastrointestinal Yes (S/P COLON RESECTION/COLOSTOMY/LATER TAKEDOWN) Gastroesophageal Reflux, Diverticulosis Musculoskeletal Yes (RIGHT KNEE REPLACEMENT) Arthritis, Gout Endocrine History of Endocrine Disorders: No HEENT History of HEENT Disorders: Yes HEENT Disorders: Cataract Loss of Vision: Denies Hearing Impairment: Denies Cancer Yes Skin Did You Recieve Any Treatments: Yes Type of Treatment: Surgical Intervention Psychosocial History of Psychiatric Problem: No Integumentary History of Skin or Integumenta: No Blood Transfusions History of Blood Disorders: No Adverse Reaction to a Blood Tr: No Family Medical History Significant Family History: No Pertinent Family Hx Other Significan Family Hx: PSH: -EGD'S/COLONOSCOPIES -CATARACT SURGERY -REMOVAL OF SKIN CANCER -APPENDECTOMY -LEFT ARM DIALYSIS SHUNT/GRAFT/AV FISTULA -RIGHT KNEE REPLACEMENT -COLON RESECTION WITH DIVERTING COLOSTOMY FOR DIVERTICULITIS, WITH LATER TAKEDOWN/REVERSAL -VALVE REPLACEMENT -PACEMAKER -LEFT HIP FRACTURE/ORIF 10/2019 Family Hx: Alzheimer's disease FHx: breast cancer in first degree relative G8 SISTER Review of Systems Constitutional: weakness EENTM: No see HPI, No no symptoms reported, No ear discharge, No hearing loss, No ear pain, No blurred vision, No double vision, No eye pain, No tearing, No vision loss, No dental problems, No hoarseness, No mouth pain, No mouth swelling, No epistaxis, No nose congestion, No nose pain, No throat pain, No throat swelling, No other Respiratory: dyspnea on exertion, short of breath Cardiovascular: No no symptoms reported, No see HPI, No chest pain, No edema, No Hx of Intervention, No palpitations, No syncope, No vascular heart diseas, No other Gastrointestinal: loss of appetite Genitourinary: decreased output Musculoskeletal: muscle weakness, other (left upper arm pain) Skin: change in color Psychiatric/Neurological: Weakness Physical Exam Vital Signs Vital Signs - First Documented 08/16/20 08/16/20 08/17/20 15:39 15:40 03:03 Temp 37.1 Pulse 81 Resp 24 B/P (MAP) 105/49 (67) Pulse Ox 86 O2 Delivery Nasal Cannula O2 Flow Rate 6.00 FiO2 40 Capillary Refill : Less Than 3 Seconds Height, Weight, BMI Height: 5'7.00" Weight: 185lbs. 8.0oz. 83.134024ax; 29.00 BMI Method:Stated General Appearance: Moderate Distress HEENT: Normal ENT Inspection Neck: Supple Respiratory: Lungs Clear, Decreased Breath Sounds, Respiratory Distress Cardiovascular: Systolic Murmur, Tachycardia Gastrointestinal: Normal Bowel Sounds, Non Tender, Soft Rectal: Deferred Back: No CVA Tenderness Extremity: Non Tender, No Calf Tenderness, No Pedal Edema, Other (Lert upper arm with tender fistula but no erythema) Neurologic/Psychiatric: Alert, Oriented x3, Motor Weakness Skin: Warm/Dry Comments Laboratory Tests 08/16/20 19:35: Lactic Acid Level 2.17*H 08/16/20 21:55: Lactic Acid Level 1.91 08/17/20 02:47: White Blood Count 13.8H, Red Blood Count 2.37L, Hemoglobin 7.4L, Hematocrit 24L, Mean Corpuscular Volume 103H, Mean Corpuscular Hemoglobin 31, Mean Corpuscular Hemoglobin Concent 30L, Red Cell Distribution Width 19.2H, Platelet Count 177, Mean Platelet Volume 12.1, Immature Granulocyte % (Auto) 2, Neutrophils (%) (Auto) 86H, Lymphocytes (%) (Auto) 4L, Monocytes (%) (Auto) 7, Eosinophils (%) (Auto) 0, Basophils (%) (Auto) 0, Neutrophils # (Auto) 11.9H, Lymphocytes # (Auto) 0.6L, Monocytes # (Auto) 1.0, Eosinophils # (Auto) 0.0, Basophils # (Auto) 0.0, Immature Granulocyte # (Auto) 0.3H, Sodium Level 135, Potassium Level 4.3, Chloride Level 94L, Carbon Dioxide Level 24, Anion Gap 17H, Blood Urea Nitrogen 52H, Creatinine 5.15#H, Estimat Glomerular Filtration Rate 11, BUN/Creatinine Ratio 10, Glucose Level 126H, Calcium Level 10.0, Phosphorus Level 4.2, Magnesium Level 1.9 Microbiology 08/16/20 Blood Culture - Preliminary, Resulted Staphylococcus aureus See Comments 08/16/20 Influenza Types A,B Antigen (JASON) - Final, Complete Clinical Quality Measures DVT/VTE Risk/Contraindication: Risk Factor Score Per Nursin RFS Level Per Nursing on Admit: 4+=Very High Short Stay Diagnosis Discharge Diagnosis-Short Stay Final Discharge Diagnosis: 1. Acute Sepsis 2. Acute Hypotension 3. End Stage Renal Disease--on hemodialysis 4. Acute on Chronic Anemia 5. History of CAD with elevated Troponin 6. Acute Hypoxia/Respiratory Distress Conclusion Labs Laboratory Tests 08/16/20 19:35: Lactic Acid Level 2.17*H 08/16/20 21:55: Lactic Acid Level 1.91 08/17/20 02:47: White Blood Count 13.8H, Red Blood Count 2.37L, Hemoglobin 7.4L, Hematocrit 24L, Mean Corpuscular Volume 103H, Mean Corpuscular Hemoglobin 31, Mean Corpuscular Hemoglobin Concent 30L, Red Cell Distribution Width 19.2H, Platelet Count 177, Mean Platelet Volume 12.1, Immature Granulocyte % (Auto) 2, Neutrophils (%) (Auto) 86H, Lymphocytes (%) (Auto) 4L, Monocytes (%) (Auto) 7, Eosinophils (%) (Auto) 0, Basophils (%) (Auto) 0, Neutrophils # (Auto) 11.9H, Lymphocytes # (Auto) 0.6L, Monocytes # (Auto) 1.0, Eosinophils # (Auto) 0.0, Basophils # (Auto) 0.0, Immature Granulocyte # (Auto) 0.3H, Sodium Level 135, Potassium Level 4.3, Chloride Level 94L, Carbon Dioxide Level 24, Anion Gap 17H, Blood Urea Nitrogen 52H, Creatinine 5.15#H, Estimat Glomerular Filtration Rate 11, BUN/Creatinine Ratio 10, Glucose Level 126H, Calcium Level 10.0, Phosphorus Level 4.2, Magnesium Level 1.9 Microbiology 08/16/20 Blood Culture - Preliminary, Resulted Staphylococcus aureus See Comments 08/16/20 Influenza Types A,B Antigen (JASON) - Final, Complete Conclusion/Plan This is a 79 year old male who is on chronic dialysis who presented to my office with complaints of pain in his fistula and weakness. He was found to be hypotensive, tachycardic and hypoxic with an oxygen saturation in the 80s on 6 liters via NH in my office. It was recommended he go to [facility] for evaluation due to his dialysis but the patient and his daughter did not want to go to [facility] because they felt that they would not admit him due to no beds which is what they have been told the last few times he has been seen there. He agreed to transfer to [facility] emergency room and was found to be septic on admission. There were no available beds for a dialysis patient that could be found--at least 10 different hospitals in [place] and [place] were contacted and could not take the patient. It was decided to admit him at [facility] to stabilize him with hopes that he could go to outpatient dialysis on , 08/18/20--his infectious waste technician said he would make sure the patient could be dialyzed on that day. He was admitted to the ICU on IV maxipime and zyvox which was changed to daptomcin. He was given albumin in the ER for his hypotension per nephrogy recommendations but had to be started on levophed for hypotension. He received IVFs at a lower rate than sepsis protocol due to his end stage renal disease and significantly elevated BNP. Critical care was consulted and felt that the patient would not be stable enough to do outpatient dialysis as planned on 08/18/20 and would need transfer to a facility that had dialysis capabilities. Since there were no acute beds available for transfer, a group home care facility was contacted and the patient will be transferred to [facility] for further treatment with dialysis. A central line was placed by Dr. Crawford prior to transfer. His daughter was notified of the plan and transfer as well. The patient does wish to be a DNR. MIRELA BUTT DO Aug 17, 2020 16:53
--- NOTE | 2020-08-17 17:23 | OPERATIVE REPORT ---
DATE OF SERVICE: 08/17/2020 ATTENDING PRIMARY CARE PHYSICIAN: Mirela Cueva DO PREOPERATIVE DIAGNOSES: Sepsis and hypotension. POSTOPERATIVE DIAGNOSES: Sepsis and hypotension. PROCEDURE: Placement of left subclavian central venous catheter. SURGEON: Camille Howard MD. ANESTHESIA: Local. ESTIMATED BLOOD LOSS: Minimal. DISPOSITION: The patient tolerated the procedure well. INDICATIONS: The patient is a 79-year-old male who was admitted for cough, sputum production as well as hypotension, was found to be septic. He was admitted for resuscitation. He also does have a history of renal failure and is hemodialysis dependent through a left upper extremity AV fistula. He is currently hypotensive and will require vasopressors and will require a central venous catheter. However, he will also need to be transferred for hemodialysis. DESCRIPTION OF PROCEDURE: The left chest and neck were prepped and draped in standard surgical fashion. A 1% lidocaine was then used to anesthetize the left subclavian region. The left subclavian vein was then cannulated withdrawing the venous blood. The guidewire was then inserted without any resistance. A skin incision was made using 11 blade and a tract created using a venous dilator and through this opening, a central venous catheter was placed over the guidewire using the Seldinger technique. All three ports robert venous blood and saline pushed in without any resistance. The catheter was then sutured to the skin using interrupted 3-0 silk sutures. Catheter was then cleaned and covered with Op-Site. The patient tolerated the procedure well. We will get a post-procedure chest x-ray. Job ID: [id number] DocumentID: [id number] Dictated Date: 08/17/2020 14:20:40 Chief Scientist Date: 08/17/2020 17:22:58 Dictated By: CAMILLE HOWARD MD
--- NOTE | 2020-08-18 09:03 | Physician Query Clarification ---
PQ-Further Specificity Admission/Discharge Admission Date: Aug 16, 2020 at 21:19 Discharge Date: Aug 17, 2020 at 15:15 Dr. Cueva, The medical record reflects the following clinical scenario: History/Risk Factors: Sepsis, ESRD on hemodialysis Clinical Findings: He complains of pain in the left arm that radiates up his arm into his back and across into his right arm. Pain around AV Fistula, tender to touch, WBC 14.2, preliminary blood cultures show staph aureus Treatment: IV Cefepime Question: Can you further specify the underlying cause of the sepsis per the clinical indicators above? Please document a response in the Progress Notes or Discharge Summary. 1. Sepsis d/t AV Fistula 2. Sepsis underlying cause undetermined 3. Other, with explanation of the clinical findings. 4. Clinically undetermined, no explanation for the clinical findings. PHYSICIAN RESPONSE Can you specify per above: 2 Please remember a lack of response to the above will prompt a phone page by CDI/Coding staff. In responding to this query, please exercise your independent professional judgment. The purpose of this communication is to more accurately reflect the complexity of your patients condition. The fact that a question is asked does not imply that any particular answer is desired or expected. Thank you for your timely response to this clarification. Requestors name: Keya [email or web address] THIS PHYSICIAN QUERY FORM IS A PERMANENT PART OF THE MEDICAL RECORD KEYA RUTHERFORD Aug 18, 2020 09:03 ALANA CUEVA DO Aug 19, 2020 10:11
--- NOTE | 2020-08-18 09:06 | Physician Query Clarification ---
PQ-Intro New Diagnosis Admission/Discharge Admission Date: Aug 16, 2020 at 21:19 Discharge Date: Aug 17, 2020 at 15:15 Dr. Cueva, The medical record reflects the following clinical scenario: History/Risk Factors: Sepsis, ESRD w/hemodialysis Clinical Findings: Troponin 0.052 Treatment: IV Cefepime Question: What condition best reflects the above clinical scenario? Please document a response in the Progress Noter or Discharge Summary. 1. OR type 2 2. Elevated troponin etiology undetermined 3. Other, with explanation of the clinical findings. 4. Clinically undetermined, no explanation for the clinical findings. PHYSICIAN RESPONSE What condition reflects above: 2 Please remember a lack of response to the above will prompt a phone page by CDI/Coding staff. In responding to this query, please exercise your independent professional judgment. The purpose of this communication is to more accurately reflect the complexity of your patients condition. The fact that a question is asked does not imply that any particular answer is desired or expected. Thank you for your timely response to this clarification. Requestors name: Keya THIS PHYSICIAN QUERY FORM IS A PERMANENT PART OF THE MEDICAL RECORD KEYA RUTHERFORD Aug 18, 2020 09:06 ALANA CUEVA DO Aug 19, 2020 10:12
== END 2020-08-17 15:15 | DRG 871 ==
LOC: EDUNIT# 15:39 → ER 15:41 → EDLOC 21:19 → ICU 21:19
PROVIDERS: ADMIT Family Medicine; ATTEND Family Medicine
PROC: 05H433Z Insertion of Infusion Device into Left Innominate Vein, Percutaneous Approach (ICD-10-PCS; principal; 2020-08-17)
DX: A41.9 Sepsis, unspecified organism (principal); N18.6 End stage renal disease; I12.0 Hypertensive chronic kidney disease with stage 5 chronic kidney disease or end stage renal disease; I95.9 Hypotension, unspecified; Z99.2 Dependence on renal dialysis; Z87.891 Personal history of nicotine dependence; R09.02 Hypoxemia; R06.03 Acute respiratory distress; Z66 Do not resuscitate; R77.8 Other specified abnormalities of plasma proteins; I25.10 Atherosclerotic heart disease of native coronary artery without angina pectoris; E78.00 Pure hypercholesterolemia, unspecified; N40.0 Benign prostatic hyperplasia without lower urinary tract symptoms; K21.9 Gastro-esophageal reflux disease without esophagitis; D64.9 Anemia, unspecified; I49.9 Cardiac arrhythmia, unspecified; M19.91 Primary osteoarthritis, unspecified site; Z95.5 Presence of coronary angioplasty implant and graft; Z95.2 Presence of prosthetic heart valve; Z95.0 Presence of cardiac pacemaker; Z96.651 Presence of right artificial knee joint; Z20.822 Contact with and (suspected) exposure to COVID-19
CPT/HCPCS: 36415; 71045; 80048; 80053; 82805; 83605; 83735; 83880; 84100; 84145; 84484; 85007; 85025; 85027; 86141; 87040; 87077; 87081; 87186; 87635; 87804; 93005; 93041; 93306; 94640; 99291